=== PATIENT | male | born 1930 | race Caucasian/White ===

== ENCOUNTER → 2016-06-27 | Outpatient (CLI) | payer BC ==
[~2016-06-27] MED LIST: ALPR0.25 PO; AMBCR125 PO; ATEN-173 PO; CLOP1TAB15 PO; EZET10TA41 PO; FINA5TAB PO; IBUP-1050 PO; LEVO112T2 PO; LRT5 PO; MULT-506 PO; NXM/40 PO; SYN137 PO; XNX25 PO; ZNTT/150 PO; ZOLP12.5 PO
== END | disposition home or self-care (01) ==
LOC: C.LABBC 13:18
PROVIDERS: ATTEND Internal Medicine
DX: E03.9 Hypothyroidism, unspecified (principal)

== ENCOUNTER → 2016-08-10 | Outpatient (CLI) | payer BC | END | disposition home or self-care (01) | LOC: C.LABBC 12:51 | PROVIDERS: ATTEND Internal Medicine | DX: E03.9 Hypothyroidism, unspecified (principal) ==

== ENCOUNTER → 2016-11-27 | Outpatient (CLI) | payer BC ==
[~2016-11-27] MED LIST changes: +CHOL2000 PO; +GABA-112 PO; +IRON PO; +RXC5 PO; +SIMV40TA2 PO; +TRAM-10 PO
--- NOTE | 2016-11-27 08:56 | DIAGNOSTIC IMAGING REPORT ---
LUMBAR SPINE MRI HISTORY: Pain. Neuropathy. LOW BACK/LEFT LEG PAIN *PUSH FILMS TO [facility] FAX* TECHNIQUE: Multiplanar multisequence MRI of the lumbar spine was performed without the use of contrast. COMPARISON: None. FINDINGS: For the purpose of the report the L5-S1 disc space will be located on axial image 26 of 30. Considerable degenerative disc changes throughout. Reactive bone marrow edema of the L3-L4 associated vertebral endplates. Mild concave deformity of the superior and inferior endplates of L1 considered old and/or degenerative. L1-L2: Broad-based bulging disc with mild impact anterior thecal sac. Neuroforamina are considered patent bilaterally. L2-L3: Mild broad-based disc herniation. Moderate impact anterior thecal sac. Neuroforamina are patent bilaterally. L3-L4: Severe multifactorial spinal stenosis. Broad-based disc herniation. Hypertrophic change posterior elements and ligamentum flavum. Moderate to significant narrowing of the neuroforamina bilaterally. L4-L5: Moderate multifactorial narrowing of the spinal canal. Broad-based disc herniation. Posterior osteophyte formation. Hypertrophic change and ligamentum flavum. Mild narrowing of the neuroforamina bilaterally. L5-S1: Mild central disc herniation. Minimal, any impact the thecal sac. Neuroforamina are patent bilaterally. IMPRESSION: 1. Severe degenerative disc change of the entire lumbar region. 2. This is most prominent at L3-L4. 3. Severe multifactorial spinal stenosis L3-L4 with significant narrowing of the neuroforamina bilaterally. 4. Moderate multifactorial narrowing of the spinal canal at L4-L5. 5. Central bulging disc L5-S1 with a mild broad-based disc herniation L2-L3 Electronically signed by: Paolo Carter M.D. 11/27/2016 8:55 AM Dictated Date/Time: 11/27/2016 8:51 AM
== END | disposition home or self-care (01) ==
LOC: C.MRIBC 07:33
PROVIDERS: ATTEND Pain Medicine Interventional Pain Medicine
DX: M51.36 Other intervertebral disc degeneration, lumbar region (principal); M48.06 Spinal stenosis, lumbar region

== ENCOUNTER 2017-02-06 13:17 | Emergency (ER) | payer BC ==
[~2017-02-06] VITALS: Ht 179.1 cm; Wt 90.5 kg
[~2017-02-06 13:17] MED LIST changes: -ALPR0.25 PO; -CHOL2000 PO; -GABA-112 PO; -IBUP-1050 PO; -IRON PO; -LEVO112T2 PO; -RXC5 PO; -SIMV40TA2 PO; -TRAM-10 PO; -ZOLP12.5 PO
[2017-02-06 13:43] VITALS: O2SAT 94
[2017-02-06 13:47] VITALS: Ht 179.1 cm; Wt 90.5 kg
[2017-02-06] MEDS ORDERED: SODIUM CHLORIDE 0.9% 500ML 500 ML IV STA ×2 (14:28→15:30)
[2017-02-06 14:46] LABS: BASO % 0.5 %; BASO ABS # 0.04 K/uL (0-0.2); COMPLETE YES; EOS % 3.9 %; HEMATOCRIT 42.9 % (42-52); IG% 0.2 %; LYMPH % 23.9 %; LYMPH ABS # 2.05 K/uL (1.2-3.4); MEAN CELL VOLUME 91.7 fL (80-100); MEAN CORPUSCULAR HEMOGLOBIN 31.6 pg (25-34); MEAN CORPUSCULAR HGB CONC 34.5 g/dl (32-36); MEAN PLATELET VOLUME 10.3 fL (7.4-10.4); MONO % 7.2 %; NEUT % 64.3 %; PLATELET COUNT 192 K/uL (130-400); RED BLOOD COUNT 4.68 M/uL (4.7-6.1); WHITE BLOOD COUNT 8.57 K/uL (4.8-10.8)
--- NOTE | 2017-02-06 14:48 | DIAGNOSTIC IMAGING REPORT ---
CHEST ONE VIEW PORTABLE HISTORY: 86 years-old Male acute weakness COMPARISON: Portal chest radiograph 09/28/2014 TECHNIQUE: Portable upright AP view of the chest FINDINGS: Cardiac silhouette is within normal limits. There is atherosclerosis of the aorta. Prior median sternotomy. No pneumothorax or pleural effusion. Unchanged reticular nodular opacities of the lung bases are seen. No new focal consolidations identified. Bones are grossly intact. IMPRESSION: 1. No acute cardiopulmonary process. 2. Unchanged appearance of the nonspecific bibasilar reticular nodular opacities. The above report was generated using voice recognition software. It may contain grammatical, syntax or spelling errors. Electronically signed by: Jason Wyman M.D. 02/06/2017 2:46 PM Dictated Date/Time: 02/06/2017 2:45 PM
[2017-02-06] MEDS ORDERED: LEVO112T2 PO (14:54)
[2017-02-06] MEDS ORDERED: ZOLP12.5 PO (14:55)
[2017-02-06] MEDS ORDERED: ALPR0.25 PO (14:55)
[2017-02-06] MEDS ORDERED: IBUP-1050 PO (14:56)
[2017-02-06 14:57] LABS: URINE APPEARANCE CLEAR (CLEAR); URINE BILIRUBIN NEG (NEG); URINE COLOR YELLOW; URINE NITRITE NEG (NEG); URINE PH 5.5 (4.5-7.5); UROBILINOGEN NEG (NEG); ZZUR CULT IF INDIC CLEAN CATCH NO
--- NOTE | 2017-02-06 14:58 | EMERGENCY ROOM VISIT NOTE ---
History Report prepared by Esperanza: Marichuy Aragon Under the Supervision of: Dr. Gerard Briceno M.D. First contact with patient: 14:08 Chief Complaint: WEAKNESS Stated Complaint: WEAKNESS/DIZZY Nursing Triage Summary: Pt having sudden onset of generalized weakness that he said started at 1215 today. Pt denies any unilateral weakness. Pt denies pain/SOB at this time. History of Present Illness The patient is an 86 year old white male with a past medical history of spinal stenosis and triple bypass who presents to the ED with a cc of weakness beginning about 2 hours [employer]. Positive dizziness. Negative headache, fevers, chills, sore throat, congestion, cough, palpitations, tachycardia, shortness of breath, chest pain, urinary symptoms, incontinence, diarrhea. The patient states that he was sitting down and watching TV going about his normal daily routine. He tried to get up to go to the bathroom and make lunch. He realized that his legs were weak and he was unable to stand. He got dizzy and lightheaded at this time. The patient called an ambulance and was brought to the ED for further evaluation. He has been eating and drinking normally. He has been taking tramadol for his spinal stenosis but did not take any today. The patient takes Plavix. 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 Negative congestion, palpitations, tachycardia, and incontinence. Review of Systems See HPI for pertinent positives and negatives. A total of ten systems were reviewed and were otherwise negative. Past Medical & Surgical Medical Problems: (1) Esophageal Reflux (2) Gastroenteritis (3) Hypertension Nos (4) Migraine (5) Neuropathy (6) Spinal stenosis Surgical Problems: (1) History of appendectomy (2) S/P CABG x 3 Family History Cancer Social History Smoking Status: Former Smoker Marital Status: Housing Status: lives with significant other Occupation Status: retired Current/Historical Medications Scheduled Clopidogrel (Plavix), 75 MG PO QPM Ezetimibe/Simvastatin (Vytorin 10MG/40MG), 1 TAB PO QPM Finasteride (Proscar), 5 MG PO QPM Levothyroxine Sodium (Synthroid), 112 MCG PO QAM Multivitamin (Multivitamin), 1 TAB PO DAILY Ranitidine (Zantac), 150 MG PO QPM Scheduled PRN Alprazolam (Xanax), 0.25 MG PO HS PRN for Sleep Ibuprofen (Advil), 200-600 MG PO Q4H PRN for Pain Zolpidem Tartrate (Ambien Cr), 12.5 MG PO HS PRN for Sleep Allergies Coded Allergies: Atorvastatin (Unverified Adverse Reaction, Unknown, MYALGIA, 02/06/17) Physical Exam Vital Signs Date Time Temp Pulse Resp B/P (MAP) Pulse Ox O2 Delivery O2 Flow Rate FiO2 02/06/17 17:30 36.8 97 20 152/86 93 02/06/17 17:18 97 20 152/86 93 Room Air 02/06/17 15:27 97 17 99 Room Air 02/06/17 15:22 96 18 98 02/06/17 15:17 95 16 97 Room Air 02/06/17 15:00 169/82 02/06/17 14:47 90 20 93 02/06/17 14:17 105 27 93 02/06/17 13:53 91 02/06/17 13:47 36.8 92 18 173/101 94 Room Air 02/06/17 13:43 94 Room Air 02/06/17 13:41 173/101 Physical Exam GENERAL: Awake, alert, well-appearing, NAD HENT: Normocephalic, atraumatic. Arcus senilis noted. EYES: Normal conjunctiva. Sclera non-icteric. NECK: Supple. No nuchal rigidity. FROM. RESPIRATORY: CTAB, no rhonchi, wheezing, crackles CARDIAC: RRR, no MRG ABDOMEN: Soft, NTND, BS+ MSK: No chest wall TTP, no LE edema NEURO: GCS 15, CN 2-12 intact, moves all 4s on command. No saddle anesthesia, no sensory or motor deficit of bilateral lower extremities. SKIN: No rash or jaundice noted. Medical Decision & Procedures ER Provider Diagnostic Interpretation: Radiology results as stated below per my review and radiologist interpretation: CHEST ONE VIEW PORTABLE HISTORY: 86 years-old Male acute weakness COMPARISON: Portal chest radiograph 09/28/2014 TECHNIQUE: Portable upright AP view of the chest FINDINGS: Cardiac silhouette is within normal limits. There is atherosclerosis of the aorta. Prior median sternotomy. No pneumothorax or pleural effusion. Unchanged reticular nodular opacities of the lung bases are seen. No new focal consolidations identified. Bones are grossly intact. IMPRESSION: 1. No acute cardiopulmonary process. 2. Unchanged appearance of the nonspecific bibasilar reticular nodular opacities. The above report was generated using voice recognition software. It may contain grammatical, syntax or spelling errors. Electronically signed by: Jason Wyman M.D. 02/06/2017 2:46 PM Dictated Date/Time: 02/06/2017 2:45 PM Laboratory Results 02/06/17 14:09 Red Blood Count 4.68, Mean Corpuscular Volume 91.7, Mean Corpuscular Hemoglobin 31.6, Mean Corpuscular Hemoglobin Concent 34.5, Mean Platelet Volume 10.3, Neutrophils (%) (Auto) 64.3, Lymphocytes (%) (Auto) 23.9, Monocytes (%) (Auto) 7.2, Eosinophils (%) (Auto) 3.9, Basophils (%) (Auto) 0.5, Neutrophils # (Auto) 5.51, Lymphocytes # (Auto) 2.05, Monocytes # (Auto) 0.62, Eosinophils # (Auto) 0.33, Basophils # (Auto) 0.04 02/06/17 15:37 Test 02/06/17 14:09 02/06/17 15:08 02/06/17 15:37 White Blood Count 8.57 K/uL (4.8-10.8) Red Blood Count 4.68 M/uL (4.7-6.1) Hemoglobin 14.8 g/dL (14.0-18.0) Hematocrit 42.9 % (42-52) Mean Corpuscular Volume 91.7 fL (80-100) Mean Corpuscular Hemoglobin 31.6 pg (25-34) Mean Corpuscular Hemoglobin Concent 34.5 g/dl (32-36) Platelet Count 192 K/uL (130-400) Mean Platelet Volume 10.3 fL (7.4-10.4) Neutrophils (%) (Auto) 64.3 % Lymphocytes (%) (Auto) 23.9 % Monocytes (%) (Auto) 7.2 % Eosinophils (%) (Auto) 3.9 % Basophils (%) (Auto) 0.5 % Neutrophils # (Auto) 5.51 K/uL (1.4-6.5) Lymphocytes # (Auto) 2.05 K/uL (1.2-3.4) Monocytes # (Auto) 0.62 K/uL (0.11-0.59) Eosinophils # (Auto) 0.33 K/uL (0-0.5) Basophils # (Auto) 0.04 K/uL (0-0.2) RDW Standard Deviation 47.7 fL (36.4-46.3) RDW Coefficient of Variation 14.1 % (11.5-14.5) Immature Granulocyte % (Auto) 0.2 % Immature Granulocyte # (Auto) 0.02 K/uL (0.00-0.02) Urine Color YELLOW Urine Appearance CLEAR (CLEAR) Urine pH 5.5 (4.5-7.5) Urine Specific [place] 1.020 (1.000-1.030) Urine Protein NEG (NEG) Urine Glucose (UA) NEG (NEG) Urine Ketones NEG (NEG) Urine Occult Blood NEG (NEG) Urine Nitrite NEG (NEG) Urine Bilirubin NEG (NEG) Urine Urobilinogen NEG (NEG) Urine Leukocyte Esterase NEG (NEG) Urine WBC (Auto) 0 /hpf (0-5) Urine RBC (Auto) 0-4 /hpf (0-4) Urine Hyaline Casts (Auto) 1-5 /lpf (0-5) Urine Epithelial Cells (Auto) 5-10 /lpf (0-5) Urine Bacteria (Auto) NEG (NEG) Bedside Troponin I 0.030 ng/ml (0-0.045) Anion Gap 8.0 mmol/L (3-11) Est Creatinine Clear Calc Drug Dose 52.3 ml/min Estimated GFR () 64.0 Estimated GFR (Non- 55.2 BUN/Creatinine Ratio 17.9 (10-20) Calcium Level 8.7 mg/dl (8.5-10.1) Phosphorus Level 2.3 mg/dl (2.5-4.9) Magnesium Level 2.1 mg/dl (1.8-2.4) Thyroid Stimulating Hormone (TSH) 0.912 uIu/ml (0.300-4.500) Laboratory results reviewed by ok Medications Administered Medications (Trade) Dose Ordered Sig/Yuliana Route Start Time Stop Time Status Last Admin Dose Admin Sodium Chloride 500 ml @ 500 mls/hr Q1H STAT IV 02/06/17 14:28 02/06/17 15:27 DC 02/06/17 14:49 500 MLS/HR Sodium Chloride 500 ml @ 500 mls/hr Q1H STAT IV 02/06/17 15:30 02/06/17 16:29 DC 02/06/17 15:00 500 MLS/HR ECG Indication: weakness Rate (beats per minute): 92 Rhythm: normal sinus Findings: no ectopy, other (normal intervals; no T-wave inversions) ED Course 1408: The patient was evaluated in room C12A. A complete history and physical exam was performed. 1428: NSS 500 ml @ 500 mls/hr IV 1530: NSS 500 ml @ 500 mls/hr IV 1539: I went to update the patient, but he was in the bathroom. 1626: I reassessed the patient at this time. He is feeling better and resting comfortably. I discussed the results and treatment plan with the patient. I answered all pertaining questions that he had. He expressed understanding and verbalized agreement. The patient will be discharged home. Medical Decision Differential diagnosis: Etiologies such as metabolic, infection, hypo/hyperglycemia, electrolyte abnormalities, cardiac sources, intracerebral event, toxicologic, neurologic, as well as others were entertained. The patient is an 86 year old white male with a past medical history of spinal stenosis and triple bypass who presents to the ED with a cc of weakness beginning about 2 hours [employer]. Patient was evaluated with blood work EKG. Patient's EKG further unremarkable blood work also fairly unremarkable. Patient was given IV fluids. Patient describes dizziness as lightheadedness and not his vertiginous symptoms. Patient had no neurologic deficits. Patient denied any chest pain or shortness of breath. Patient had a negative troponin. Patient's chest x-ray was negative as well. Patient was concerned about a spinal stenosis however patient did not have any saddle anesthesia bowel or bladder incontinence or retention. Patient had no unexplained weight loss or IV drug abuse. Patient was feeling much improved and was able to ambulate and tolerate by mouth. Patient was given strict follow-up, discharge, return precautions. Patient replied care patient safely discharged home. Medication Reconcilliation Current Medication List: was personally reviewed by me Blood Pressure Screening Patient's blood pressure: Elevated blood pressure Blood pressure disposition: Referred to PCP Impression Primary Impression: Generalized weakness Additional Impression: Dehydration Scribe Attestation The scribe's documentation has been prepared under my direction and personally reviewed by me in its entirety. I confirm that the note above accurately reflects all work, treatment, procedures, and medical decision making performed by me. Departure Information Dispostion Home / Self-Care Referrals Ermias Nur M.D. (PCP) Patient Instructions ED Weakness DIPESH, Kiya [facility] Additional Instructions Please return to the emergency department if you have worsening or recurrent symptoms not amenable to at-home treatment. Please call for a follow-up appointment with her primary care physician. Please take your medications as prescribed. If you have other concerns and/or complaints please feel free to also call your primary care physician's office or return the ED for further evaluation, management, and treatment. For a new PCP call [phone]. You have been examined and treated today on an emergency basis only. This is not a substitute for, or an effort to provide, complete comprehensive medical care. It is impossible to recognize and treat all injuries or illnesses in a single emergency department visit. It is therefore important that you follow up closely with [facility], your PCP, and or your specialists. Call as soon as possible for an appointment. Thank you for your time and consideration. I look forward to speaking with you again soon. Please don't hesitate to call us if you have any questions. Problem Qualifiers
[2017-02-06 15:30] LABS: MANUAL MICROSCOPIC REQUIRED? NO; REVIEW REQ? NO
[2017-02-06 16:11] LABS: BUN/CREATININE RATIO 17.9 (10-20); CALCIUM 8.7 mg/dl (8.5-10.1); CREATININE 1.2 mg/dl (0.60-1.40); MAGNESIUM 2.1 mg/dl (1.8-2.4); POTASSIUM 3.8 mmol/L (3.5-5.1)
[2017-02-06 16:21] LABS: PHOSPHORUS 2.3 mg/dl (2.5-4.9); THYROID STIMULATING HORMONE 0.912 uIu/ml (0.300-4.500)
[2017-02-06 17:30] VITALS: BP 152/86; PULSE 97; TEMP 36.8; O2SAT 93
== END 2017-02-06 17:30 | disposition home or self-care (01) ==
LOC: C.EDC 13:17 → EDBD 13:17 → C.EDC 17:30
DX: R53.1 Weakness (principal); E86.0 Dehydration; R42 Dizziness and giddiness; K21.9 Gastro-esophageal reflux disease without esophagitis; I10 Essential (primary) hypertension; Z87.891 Personal history of nicotine dependence; Z90.89 Acquired absence of other organs; Z95.1 Presence of aortocoronary bypass graft; Z79.02 Long term (current) use of antithrombotics/antiplatelets; Z79.899 Other long term (current) drug therapy

== ENCOUNTER 2017-04-24 08:11 | Inpatient (IN) | payer BC, OTHER ==
[2017-03-27 10:47] VITALS: BMI 28.0
--- NOTE | 2017-03-27 11:16 | PAT Medication Instructions ---
Service Date Mar 27, 2017. Current Home Medication List Alprazolam (Xanax), 0.25 MG PO HS PRN for Sleep Cholecalciferol (Vitamin D3), 1 CAP PO QPM Clopidogrel (Plavix), 75 MG PO QPM Esomeprazole Magnesium (Nexium), 40 MG PO QAM Finasteride (Proscar), 5 MG PO QPM Gabapentin (Neurontin), 100 MG PO TID PRN for RN Ibuprofen (Advil), 400 MG PO BID Levothyroxine Sodium (Synthroid), 112 MCG PO QAM Ranitidine (Zantac), 300 MG PO QPM PRN for Heartburn Simvastatin (Zocor), 40 MG PO QPM Zolpidem Tartrate (Ambien Cr), 12.5 MG PO HS [Iron], 65 MG PO QPM Medication Instructions For Your Scheduled Surgery - Instructions to be given by Cardiology: Clopidogrel (Plavix), 75 MG PO QPM - Hold the following medications the morning of surgery: Ibuprofen (Advil), 400 MG PO BID (otherwise okay to continue per surgeon) - Take the following medications the morning of surgery with a sip of water OTHERWISE NOTHING TO EAT OR DRINK AFTER MIDNIGHT: Esomeprazole Magnesium (Nexium), 40 MG PO QAM Levothyroxine Sodium (Synthroid), 112 MCG PO QAM Gabapentin (Neurontin), 100 MG PO TID PRN - Take the following medications as scheduled the night before surgery: Ranitidine (Zantac), 300 MG PO QPM PRN for Heartburn Simvastatin (Zocor), 40 MG PO QPM Finasteride (Proscar), 5 MG PO QPM Alprazolam (Xanax), 0.25 MG PO HS PRN for Sleep Cholecalciferol (Vitamin D3), 1 CAP PO QPM Zolpidem Tartrate (Ambien Cr), 12.5 MG PO HS [Iron], 65 MG PO QPM Gabapentin (Neurontin), 100 MG PO TID PRN If you have any questions please call us at [phone] or [phone] or [phone]
[2017-03-27 11:42] LABS: BASO % 0.4 %; BASO ABS # 0.04 K/uL (0-0.2); COMPLETE YES; EOS % 5.1 %; HEMATOCRIT 39.6 % (42-52); IG% 0.2 %; LYMPH % 24.5 %; LYMPH ABS # 2.22 K/uL (1.2-3.4); MEAN CELL VOLUME 92.1 fL (80-100); MEAN CORPUSCULAR HEMOGLOBIN 30.7 pg (25-34); MEAN CORPUSCULAR HGB CONC 33.3 g/dl (32-36); MEAN PLATELET VOLUME 9.3 fL (7.4-10.4); MONO % 8.7 %; NEUT % 61.1 %; PLATELET COUNT 200 K/uL (130-400); WHITE BLOOD COUNT 9.05 K/uL (4.8-10.8)
[2017-03-27 11:45] LABS: URINE APPEARANCE CLEAR (CLEAR); URINE BILIRUBIN NEG (NEG); URINE COLOR YELLOW; URINE SPECIFIC GRAVITY 1.018 (1.000-1.030); ZZUR CULT IF INDIC CLEAN CATCH NO
[2017-03-27 11:46] LABS: URINE NITRITE NEG (NEG); UROBILINOGEN NEG (NEG)
[2017-03-27 12:06] LABS: MANUAL MICROSCOPIC REQUIRED? NO; REVIEW REQ? NO
[2017-03-27 12:10] LABS: BUN/CREATININE RATIO 13.1 (10-20); CALCIUM 8.6 mg/dl (8.5-10.1); CREATININE 1.27 mg/dl (0.60-1.40)
[2017-04-24] VITALS (10 sets, daily range): BP systolic 146–168; BP diastolic 68–98; PULSE 77–103; TEMP 36.2–36.7; O2SAT 91–99; Ht 177.8 cm; Wt 89.4 kg
[~2017-04-24] VITALS: Ht 177.8 cm; Wt 89.4 kg
[~2017-04-24 08:11] MED LIST changes: +ALPR0.25 PO; -AMBCR125 PO; -ATEN-173 PO; +CEFAZOLIN 2000MG IV PUSH 10 ML IV SCH; +CHOL2000 PO; -EZET10TA41 PO; +GABA-112 PO; +IBUP-1050 PO; +IRON PO; +LEVO112T2 PO; -LRT5 PO; -MULT-506 PO; +SIMV40TA2 PO; -SYN137 PO; -XNX25 PO; +ZOLP12.5 PO
[2017-04-24] MEDS ORDERED: TRAM-10 PO (08:43)
[2017-04-24] MEDS: LACTATED RINGER'S 1000ML 1,000 ML IV SCH ×2 (08:58→10:06)
--- NOTE | 2017-04-24 09:38 | History & Physical Bridge Note ---
H&P Re-Evaluation Bridge Note: I have examined the patient, reviewed the History & Physical and in the interval since the performance of the History & Physical I have noted the following changes of clinical significance: No changes noted
--- NOTE | 2017-04-24 09:42 | History and Physical ---
History & Physical Date Apr 24, 2017. Chief Complaint Back and leg pain History of Present Illness The patient is a 86 year old male with complaints of back and leg pain Past Medical/Surgical History Medical Problems: (1) Esophageal Reflux (2) Gastroenteritis (3) Hypertension Nos (4) Migraine (5) Neuropathy (6) Spinal stenosis Surgical Problems: (1) History of appendectomy (2) S/P CABG x 3 Additional History Hepatic Disease: No Endocrine Disorder: No Kidney Disease: No Hypertension: No Heart Disease: No Bleeding Tendencies: No Infectious Diseases: No Allergies Coded Allergies: Atorvastatin (Unverified Adverse Reaction, Unknown, MYALGIA, 04/24/17) Home Medications Scheduled Cholecalciferol (Vitamin D3), 1 CAP PO QPM Clopidogrel (Plavix), 75 MG PO QPM Esomeprazole Magnesium (Nexium), 40 MG PO QAM Finasteride (Proscar), 5 MG PO QPM Ibuprofen (Advil), 400 MG PO BID Levothyroxine Sodium (Synthroid), 112 MCG PO QAM Simvastatin (Zocor), 40 MG PO QPM Zolpidem Tartrate (Ambien Cr), 12.5 MG PO HS [Iron], 65 MG PO QPM Scheduled PRN Alprazolam (Xanax), 0.25 MG PO HS PRN for Sleep Gabapentin (Neurontin), 100 MG PO TID PRN for RN Ranitidine (Zantac), 300 MG PO QPM PRN for Heartburn Tramadol (Ultram), 1 TAB PO DAILY PRN for Pain or Fever Physical Examination Skin: warm/dry, no rash Eyes: normal inspection, EOMI, sclerae normal ENT: normal ENT inspection, pharynx normal Head: normocephalic, atraumatic Neck: supple, no adenopathy, trachea midline Respiratory/Chest: lungs clear, normal breath sounds, no respiratory distress Cardiovascular: regular rate, rhythm, no edema, no murmur Abdomen / GI: normal bowel sounds, non tender Back: normal inspection Extremities: normal inspection, normal range of motion Neurologic/Psych: no motor/sensory deficits, alert, normal reflexes, oriented x 3 Diagnosis Lumbar spinal stenosis Plan of Treatment L3 to L4 decompression in situ versus instrumented fusion
[2017-04-24] MEDS ORDERED: ONDANSETRON INJ 2 MG/ML 2 ML VIAL IV PRN (10:00)
[2017-04-24] MEDS ORDERED: MEPERIDINE HCL 25 MG/ML CARP IV PRN (10:00)
[2017-04-24] MEDS ORDERED: ATROPINE SULFATE 0.1 MG/ML 5ML SYR IV PRN (10:00)
[2017-04-24] MEDS ORDERED: HYDROmorphone INJ 1 MG/ML SYR IV PRN (10:00)
[2017-04-24] MEDS ORDERED: LABETALOL HCL IV 5 MG/ML 20ML IV PRN (10:00)
[2017-04-24] MEDS ORDERED: FENTANYL CITRATE INJ 50 MCG/1 ML 2 ML VIAL IV PRN (10:00)
[2017-04-24] MEDS ORDERED: EpHEDrine SULFATE INJ 50 MG/ML AMP IV PRN (10:00)
[2017-04-24] MEDS ORDERED: SODIUM CHLORIDE 0.9% PF 50 ML VIAL ONE (10:07)
[2017-04-24] MEDS ORDERED: BACITRACIN 50000 UNIT VIAL ONE (10:07)
[2017-04-24] MEDS ORDERED: FENTANYL CITRATE INJ 50 MCG/1 ML 2 ML VIAL ONE ×2 (10:09→10:34)
[2017-04-24] MEDS ORDERED: MIDAZOLAM HCL 1 MG/ML 2ML VIAL ONE (10:09)
[2017-04-24] MEDS ORDERED: BUPIVACAINE/EPINEPHRINE 0.5% MPF 1:200,000 30 ML VIAL ONE (10:25)
[2017-04-24] MEDS ORDERED: HYDROmorphone INJ 2 MG/ML SYR/VIAL ONE (10:35)
[2017-04-24] MEDS ORDERED: EpHEDrine SULFATE 50MG/5ML SYR ONE (10:47)
[2017-04-24] MEDS ORDERED: PHENYLEPHRINE 100MCG/ML 5ML SYR ONE (10:47)
[2017-04-24] MEDS ORDERED: FLOSEAL HEMOSTATIC MATRIX 5ML TOP ONE (10:54)
[2017-04-24] MEDS ORDERED: FLOSEAL HEMOSTATIC MATRIX 10ML TOP ONE (10:57)
[2017-04-24] MEDS ORDERED: ONDANSETRON INJ 2 MG/ML 2 ML VIAL ONE (11:19)
[2017-04-24] MEDS ORDERED: DEXAMETHASONE SOD INJ 4 MG/ML VIAL ONE (11:19)
[2017-04-24] MEDS ORDERED: NEOSTIGMINE METHYLSULFATE 1 MG/ML 10ML VIAL ONE (11:19)
[2017-04-24] MEDS ORDERED: PROPOFOL IV EMULSION 10 MG/ML 20 ML VIAL IV ONE (11:19)
[2017-04-24] MEDS ORDERED: LIDOCAINE HCL 2% 2 ML VIAL (20MG/ML) ONE (11:19)
[2017-04-24] MEDS ORDERED: GLYCOPYRROLATE INJ 0.2 MG/ML VIAL ONE (11:19)
[2017-04-24] MEDS ORDERED: SODIUM CHLORIDE 0.9% 1000ML 1,000 ML IV SCH (11:58)
[2017-04-24] MEDS ORDERED: NALOXONE HCL 0.4 MG/1 ML VIAL/CARP IV PRN ×2 (12:00)
[2017-04-24] MEDS ORDERED: ALUMINUM/MAGNESIUM SUSP 30 ML UDC PO PRN (12:00)
[2017-04-24] MEDS ORDERED: hydrOXYzine HCL 25 MG TAB PO PRN (12:00)
[2017-04-24] MEDS ORDERED: BISACODYL 10 MG SUPP PR PRN (12:00)
[2017-04-24] MEDS ORDERED: ACETAMINOPHEN IV 100 ML IV PRN (12:00)
[2017-04-24] MEDS ORDERED: RANITIDINE HCL 150 MG TAB PO PRN (12:00)
[2017-04-24] MEDS ORDERED: ALPRAZOLAM 0.25 MG TAB PO PRN (12:00)
[2017-04-24] MEDS ORDERED: TRAMADOL HCL 50 MG TAB PO PRN (12:00)
[2017-04-24] MEDS ORDERED: MAGNESIUM HYDROXIDE SUSP 30 ML UDC PO PRN (12:00)
[2017-04-24] MEDS ORDERED: DO NOT ADMINISTER PNEUMOCOCCAL VACCINE PRN ×2 (12:00)
[2017-04-24] MEDS ORDERED: ACETAMINOPHEN 500 MG TAB PO PRN (12:00)
[2017-04-24] MEDS ORDERED: DO NOT ADMINISTER FLU VACCINE PRN ×3 (12:00)
[2017-04-24] MEDS ORDERED: SOD PHOSPHATE/SOD BIPHOSPHATE ENEMA 132 ML BTL PR PRN (12:00)
[2017-04-24] MEDS ORDERED: GABAPENTIN 100 MG CAP PO PRN (12:00)
[2017-04-24] MEDS ORDERED: FAMOTIDINE 20 MG TAB PO PRN (12:00)
--- NOTE | 2017-04-24 12:09 | [facility] Operative Report ---
Operative Report Operative Date Apr 24, 2017. Pre-Operative Diagnosis Lumbar Spinal Stenosis Post-Operative Diagnosis Lumbar Spinal Stenosis Procedure(s) Performed #1 lumbar decompression medial facetectomies foraminotomies L2 3 L3 4. #2 posterior spinal fusion L3 4. #3 placement of posterior instrumentation L3 4. #4 placement of locally harvested morcellized autograft posterior gutters. #5 placement infuse collagen sponge combined Master graft and posterior gutters. Surgeon Amparo Core Checker Surgeon(s) Lashon Dominguez PA-C Estimated Blood Loss 275ML Findings Severe spinal stenosis with herniated nucleus pulposus and bilateral foraminal stenosis Specimens None per surgeon Description of Procedure Patient was met with preoperatively case discussed all questions addressed. After informed consent was obtained patient was taken to the operative suite placed in the prone position the [place] table top Roni frame. All bony prominences were well-padded eyes inspected to ensure there is no external pressure placed upon them. This point lumbar spines prepped draped nostril fashion. Sharp dissection with the assistance of Bovie cautery was performed onto an exposing the lamina and transverse processes of L3 4. From a caudal cephalad fashion complete laminectomy of L3 and partial laminectomy of L2 was performed including the facet was foraminotomies addressing severe lateral recess and foraminal stenosis. After this complete pedicle screws were placed in L2 3 and L4 bilaterally with assistance of fluoroscopy the purposes suzanne locked in position. The transverse processes of L3 and L4 were then burred to subcortical bleeding bone. Infuse collagen sponge mask graft and locally harvested morcellized autograft was placed in the posterior lateral gutters. A 15 round LICO drain was inserted. Incision was then closed with 1 Vicryl in the fascia 2-0 Vicryl subcutaneous cutaneously 4 Monocryl for skin closure Steri- Strips sterile dressings placed patient we can take PACU stable condition. Please note Lasohn Carpenter was present at the entire procedure involved in patient positioning complex portions of the surgery and final skin closure. I attest to the content of the Intraoperative Record and any orders documented therein. Any exceptions are noted below.
[2017-04-24] MEDS ORDERED: HYDROmorphone HCL 0.5MG/ML 50 ML CASSETTE ONE (12:12)
[2017-04-24] MEDS ORDERED: ESMOLOL HCL 10 MG/ML 10 ML VIAL ONE (12:16)
--- NOTE | 2017-04-24 12:18 | DIAGNOSTIC IMAGING REPORT ---
LUMBAR SPINE 2 OR 3 VIEW HISTORY: 86 years-old Male L3-L4 DECOMPRESSION/FUSION status post decompression at L3-L4 COMPARISON: Lumbar spine radiograph 03/12/2017 TECHNIQUE: 2 spot fluoroscopic images of the lumbar spine were obtained utilizing 10.7 seconds fluoroscopy time FINDINGS: Postoperative changes compatible with posterior decompression with posterior interbody suzanne and screw fusion at the L3-L4 level. Alignment appears satisfactory. Multilevel intervertebral disc space narrowing and endplate spurring is noted. IMPRESSION: Fluoroscopic assistance as above. Please see operative report for further details. The above report was generated using voice recognition software. It may contain grammatical, syntax or spelling errors. Electronically signed by: Jason Wyman M.D. 04/24/2017 12:17 PM Dictated Date/Time: 04/24/2017 12:16 PM
[2017-04-24] MEDS: SODIUM CHLORIDE 0.9% 1000ML 1,000 ML IV SCH ×2 (14:07→20:33)
--- NOTE | 2017-04-24 14:16 | Anesthesiology Progress Note ---
Anesthesia Post Op Note Date & Time Apr 24, 2017 at 14:15 Vital Signs Pain Intensity: 5.0 Vital Signs Past 12 Hours Date Time Temp Pulse Resp B/P (MAP) Pulse Ox O2 Delivery O2 Flow Rate FiO2 04/24/17 14:05 36.4 79 16 153/68 (96) 99 Nasal Cannula 4.0 04/24/17 13:00 91 Nasal Cannula 4.0 04/24/17 13:00 36.4 77 16 147/75 (99) 91 Nasal Cannula 4.0 04/24/17 13:00 91 Nasal Cannula 4.0 04/24/17 12:55 80 12 151/71 98 Nasal Cannula 4 04/24/17 12:45 36.4 81 16 157/79 95 Nasal Cannula 4 04/24/17 12:35 77 16 143/74 98 Nasal Cannula 4 04/24/17 12:25 80 16 147/73 100 Oxymask 10 04/24/17 12:15 79 16 152/78 100 Oxymask 10 04/24/17 12:09 36.8 81 16 127/65 100 Oxymask 10 04/24/17 08:44 36.4 92 20 161/89 (113) 93 Room Air Notes Mental Status: alert / awake / arousable, participated in evaluation Pt Amnestic to Procedure: Yes Nausea / Vomiting: adequately controlled Pain: adequately controlled Airway Patency, RR, SpO2: stable & adequate BP & HR: stable & adequate Hydration State: stable & adequate Anesthetic Complications: no major complications apparent
[2017-04-24] MEDS: HYDROmorphone HCL 0.5MG/ML 50 ML CASSETTE IV PRN ×2 (14:58→23:10)
[2017-04-24] MEDS: CEFAZOLIN IV 2,000 MG in SYRINGE 0 ML IV SCH (17:29)
[2017-04-24] MEDS: DEXAMETHASONE INJ 6 MG in SYRINGE 0 ML IV SCH (20:34)
[2017-04-24] MEDS: FINASTERIDE 5 MG TAB PO SCH (20:35)
[2017-04-24] MEDS: SIMVASTATIN 40 MG TAB PO SCH (20:35)
[2017-04-24] MEDS: DOCUSATE SODIUM/SENNA 50/8.6MG TAB PO SCH (20:35)
[2017-04-24] MEDS ORDERED: COUGH DROP (SUGAR FREE) LOZ 24 LOZ/1 BOX PO PRN (20:45)
[2017-04-24] MEDS ORDERED: NURSING DECISION MEDICATION ORDER SCH (20:45)
--- NOTE | 2017-04-24 21:05 | Medical Consult ---
Consultation Date of Consultation: Apr 24, 2017. Attending Physician: Donnell Christensen D.O. Reason for Consultation: post-operative medical management History of Present Illness 86yo male with history of CAD s/p CABG, HTN, hyperlipidemia, BPH, and hypothyroidism who presented today for elective lumbar back surgery by Dr. Moisés Christensen. I saw the patient post-op on the orthopedic floor and he denied any chest pain, dyspnea, nausea, emesis, or abdominal pain. His main complaint was that of back pain. The operative record indicates that the patient had: #1 lumbar decompression medial facetectomies foraminotomies L2-3 and L3-4. #2 posterior spinal fusion L3-4. #3 placement of posterior instrumentation L3-4. Past Medical/Surgical History PMH: 1. CAD 2. GERD 3. HTN 4. h/o migraine 5. h/o neuropathy 6. spinal stenosis of the lumbar spine 7. hyperlipidemia 8. hypothyroidism 9. BPH PSH: 1. appendectomy 2. 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[employer]) Allergies Coded Allergies: Atorvastatin (Unverified Adverse Reaction, Unknown, MYALGIA, 04/24/17) Home Medications Ultram (Tramadol HCl) 50 Mg Tab 1 Tab PO DAILY PRN 30 Days Nexium (Esomeprazole Magnesium) 40 Mg Capcr 40 Mg PO QAM Zocor (Simvastatin) 40 Mg Tab 40 Mg PO QPM Vitamin D3 (Cholecalciferol) 2,000 Unit Cap 1 Cap PO QPM 90 Days [Iron] 65 Mg PO QPM Neurontin (Gabapentin) 100 Mg Cap 100 Mg PO TID PRN Advil (Ibuprofen) 200 Mg Tab 400 Mg PO BID Ambien Cr (Zolpidem Tartrate) 12.5 Mg Tabcr 12.5 Mg PO HS Xanax (Alprazolam) 0.25 Mg Tab 0.25 Mg PO HS PRN Synthroid (Levothyroxine Sodium) 112 Mcg Tab 112 Mcg PO QAM Zantac (Ranitidine HCl) 150 Mg Tab 300 Mg PO QPM PRN Proscar (Finasteride) 5 Mg Tab 5 Mg PO QPM Plavix (Clopidogrel Bisulfate) 75 Mg Tab 75 Mg PO QPM Current Inpatient Medications Current Inpatient Medications Medications (Trade) Dose Ordered Sig/Yuliana Route Start Time Stop Time Status Last Admin Dose Admin Cefazolin Sodium 10 ml @ 2.5 mls/min PREOP IV 04/24/17 06:00 04/24/17 18:00 04/24/17 10:18 2.5 MLS/MIN Dexamethasone Sodium Phosphate 6 mg/Syringe 1.5 ml @ 1 mls/min Q8H IV 04/24/17 20:00 04/25/17 12:02 Pneumococcal Polysaccharide Vaccine 1 ea PRN PRN N/A 04/24/17 12:00 05/24/17 11:59 Influenza Virus Vacc Triv Types A&B 1 ea PRN PRN N/A 04/24/17 12:00 05/24/17 11:59 Polyethylene (Miralax Powder Packet) 17 gm Q6 PO 04/26/17 06:00 05/26/17 05:59 Bisacodyl (Dulcolax Supp) 10 mg DAILY PRN OR 04/24/17 12:00 05/24/17 11:59 Magnesium Hydroxide (Milk Of Magnesia Susp) 30 ml DAILY PRN PO 04/24/17 12:00 05/24/17 11:59 Hydromorphone HCl (Dilaudid Inj) 0.5 mg Q3H PRN IV 04/25/17 06:00 05/09/17 05:59 Oxycodone HCl (Roxicodone Immediate Rel Tab) 5-10mg prn moderate to sev... Q4H PRN PO 04/25/17 06:00 05/09/17 05:59 Cefazolin Sodium 2000 mg/Syringe 10 ml @ 2.5 mls/min Q8H IV 04/24/17 18:00 04/25/17 02:03 04/24/17 17:29 2.5 MLS/MIN Sodium Chloride 1,000 ml @ 150 mls/hr Q6H40M IV 04/24/17 14:00 05/24/17 13:59 04/24/17 14:07 150 MLS/HR Acetaminophen (Tylenol Tab) 1,000 mg Q8H PRN PO 04/24/17 12:00 05/24/17 11:59 Acetaminophen 100 ml @ 400 mls/hr Q8H PRN IV 04/24/17 12:00 05/24/17 11:59 Naloxone HCl (Narcan Inj) 0.1 mg Q5M PRN IV 04/24/17 12:00 05/24/17 11:59 Senna/Docusate Sodium (Senokot S Tab) 2 tab HS PO 04/24/17 21:00 05/24/17 20:59 Sodium Biphosphate/ Sodium Phosphate (Fleet Enema) 132 ml ONE PRN OR 04/24/17 12:00 05/24/17 11:59 Hydroxyzine HCl (Vistaril Tab) 25 mg Q8H PRN PO 04/24/17 12:00 05/24/17 11:59 Al Hydroxide/Mg Hydroxide (Maalox Susp) 30 ml Q6H PRN PO 04/24/17 12:00 05/24/17 11:59 Famotidine (Pepcid Tab) 20 mg Q12 PRN PO 04/24/17 12:00 05/24/17 11:59 Diphenhydramine HCl (Benadryl Cap) 25 mg Q6H PRN PO 04/24/17 12:00 05/24/17 11:59 Miscellaneous Information (Discontinue LIGHT TECHNICIAN) 1 ea TODAY@0600 N/A 04/25/17 06:00 04/25/17 06:01 Naloxone HCl (Narcan Inj) 0.1 mg Q5M PRN IV 04/24/17 12:00 04/25/17 06:00 Hydromorphone HCl (Dilaudid School Age Lead Teacher) 25 mg PRN PRN IV 04/24/17 12:00 04/25/17 06:00 04/24/17 14:58 25 MG Sodium Chloride 1,000 ml @ 15 mls/hr Q24H IV 04/24/17 11:58 04/25/17 06:00 Alprazolam (Xanax Tab) 0.25 mg HS PRN PO 04/24/17 12:00 05/24/17 11:59 Finasteride (Proscar Tab) 5 mg QPM PO 04/24/17 21:00 05/24/17 20:59 Gabapentin (Neurontin Cap) 100 mg TID PRN PO 04/24/17 12:00 05/24/17 11:59 Levothyroxine Sodium (Synthroid Tab) 112 mcg DAILYBB PO 04/25/17 06:00 05/25/17 05:59 Ranitidine HCl (zANTac TAB) 300 mg QPM PRN PO 04/24/17 12:00 05/24/17 11:59 Simvastatin (Zocor Tab) 40 mg QPM PO 04/24/17 21:00 05/24/17 20:59 Tramadol HCl (Ultram Tab) 50 mg DAILY PRN PO 04/24/17 12:00 05/24/17 11:59 Pantoprazole Sodium (Protonix Tab) 40 mg QAM PO 04/25/17 09:00 05/25/17 08:59 Miscellaneous Information (Order Awaiting Action) 1 ea QS N/A 04/24/17 16:00 05/24/17 15:59 Hydromorphone HCl (Dilaudid Inj) 1 mg Q3H PRN IV 04/25/17 06:00 05/09/17 05:59 Review of Systems Constitutional: No fever, No chills, No weight loss, No fatigue Eyes: No worsening of vision ENT: No hearing loss, No nasal symptoms, No sore throat, No trouble swallowing Respiratory: No cough, No dyspnea on exertion, No dyspnea at rest Cardiovascular: No chest pain, No orthopnea, No PND, No edema Abdomen: No pain, No nausea, No vomiting, No diarrhea, No GI bleeding Musculoskeletal: No joint pain Genitourinary - Male: No dysuria Neurologic: + numbness/tingling (legs, prior to his operation), No memory loss Psychiatric: No depression symptoms Endocrine: No fatigue Hematologic / Lymphatic: No abnormal bleeding/bruising Integumentary: No rash Physical Exam Date Time Temp Pulse Resp B/P (MAP) Pulse Ox O2 Delivery O2 Flow Rate FiO2 04/24/17 16:03 36.2 85 16 159/78 (105) 95 Nasal Cannula 3.0 04/24/17 14:53 36.3 81 16 147/83 (104) 96 Nasal Cannula 4.0 04/24/17 14:27 36.3 77 19 153/73 (99) 96 Nasal Cannula 4.0 04/24/17 14:05 36.4 79 16 153/68 (96) 99 Nasal Cannula 4.0 04/24/17 13:00 91 Nasal Cannula 4.0 04/24/17 13:00 36.4 77 16 147/75 (99) 91 Nasal Cannula 4.0 04/24/17 13:00 91 Nasal Cannula 4.0 04/24/17 12:55 80 12 151/71 98 Nasal Cannula 4 04/24/17 12:45 36.4 81 16 157/79 95 Nasal Cannula 4 04/24/17 12:35 77 16 143/74 98 Nasal Cannula 4 04/24/17 12:25 80 16 147/73 100 Oxymask 10 04/24/17 12:15 79 16 152/78 100 Oxymask 10 04/24/17 12:09 36.8 81 16 127/65 100 Oxymask 10 04/24/17 08:44 36.4 92 20 161/89 (113) 93 Room Air General Appearance: no apparent distress Head: normocephalic, atraumatic Eyes: PERRL ENT: pharynx normal Neck: supple, no adenopathy, thyroid normal, no JVD Respiratory/Chest: no respiratory distress, no accessory muscle use, + rales ( bases ) Cardiovascular: no gallop, no murmur, normal peripheral pulses, + tachycardia Abdomen/GI: normal bowel sounds, soft, no organomegaly, + distended (bladder - with tenderness) Back: + pertinent finding (large dressing in place on back) Extremities/Musculoskelatal: no pedal edema Neurologic/Psych: no motor/sensory deficits, alert, oriented x 3 Skin: no rash Assessment & Plan 86yo male with history of CAD s/p CABG 1979, BPH, HTN, hyperlipidemia, and hypothyroidism who underwent lumbar back surgery today for severe spinal stenosis. 1. s/p lumbar decompression/fusion - DVT proph, pain management, dispo per primary orthopedic team. 2. tachycardia - would obtain EKG to ensure no ischemic changes or dysrhythmia although his rhythm sounded regular on exam. Tachycardia could be due to acute blood loss anemia, pain, etc. Follow carefully. 3. hypothyroidism - continue synthroid; TSH was compensated in January 2017. 4. BPH - the patient has not voided since his surgery. His bladder feels distended. Low threshold for I/O cath. If symptoms persist he could need arreaga. 5. HTN - continue outpatient meds. 6. CAD - no ischemic symptoms at this time. Resume plavix when OK with primary orthopedic team. Cont statin. 7. GERD - continue H2 evens. 8. neuropathy - gabapentin. 9. FEN - patient currently getting 150cc/hr of basal fluids + his LIGHT TECHNICIAN (another 15cc/hr). Would lower basal rate to 100cc/hr to avoid fluid overload. Thank you for this consult. Will continue to follow with you. Additional Copies To Ermias Nur M.D.; Hever Jackman,P.A.
[2017-04-25] MEDS: CEFAZOLIN IV 2,000 MG in SYRINGE 0 ML IV SCH (02:04)
[2017-04-25 03:00] VITALS: BP 158/77; PULSE 100; TEMP 36.6; O2SAT 92
[2017-04-25] MEDS: SODIUM CHLORIDE 0.9% 1000ML 1,000 ML IV SCH (03:09)
[2017-04-25] MEDS: DEXAMETHASONE INJ 6 MG in SYRINGE 0 ML IV SCH ×2 (03:49→12:53)
[2017-04-25] MEDS: LEVOTHYROXINE 112 MCG TAB PO SCH (05:18)
[2017-04-25] MEDS ORDERED: HYDROmorphone INJ 1 MG/ML SYR IV PRN (06:00)
[2017-04-25] MEDS ORDERED: NURSING VERBAL MED ORDER ONE (06:00)
[2017-04-25] MEDS ORDERED: HYDROmorphone INJ 0.5 MG/0.5 ML SYR IV PRN (06:00)
[2017-04-25] MEDS ORDERED: DC PCA SCH (06:00)
[2017-04-25] MEDS ORDERED: OXYCODONE HCL IR 5 MG TAB (IMMEDIATE RELEASE) PO PRN (06:00)
[2017-04-25 06:22] LABS: BASO % 0.1 %; BASO ABS # 0.01 K/uL (0-0.2); COMPLETE YES; HEMATOCRIT 37.2 % (42-52); IG% 0.4 %; LYMPH % 4.6 %; LYMPH ABS # 0.77 K/uL (1.2-3.4); MEAN CELL VOLUME 91.2 fL (80-100); MEAN CORPUSCULAR HEMOGLOBIN 30.9 pg (25-34); MEAN CORPUSCULAR HGB CONC 33.9 g/dl (32-36); MEAN PLATELET VOLUME 9.4 fL (7.4-10.4); MONO % 6.8 %; NEUT % 88.1 %; PLATELET COUNT 162 K/uL (130-400); RED BLOOD COUNT 4.08 M/uL (4.7-6.1)
[2017-04-25 06:51] LABS: CALCIUM 8.5 mg/dl (8.5-10.1); CREATININE 1.16 mg/dl (0.60-1.40); POTASSIUM 4.7 mmol/L (3.5-5.1)
[2017-04-25 07:33] VITALS: BP 144/70; PULSE 93; TEMP 36.5; O2SAT 91
[2017-04-25] MEDS: PANTOprazole SOD 40 MG TAB PO SCH (09:28)
--- NOTE | 2017-04-25 10:35 | Hospitalist Progress Note ---
Hospitalist Progress Note Date of Service Apr 25, 2017. (Cayla Alejo ., PA-C) Subjective Pt evaluation today including: conversation w/ patient, physical exam, chart review, lab review, review of inpatient medication list Pain: Back pain controlled PO Intake: Tolerating PO diet Voiding: no voiding problems Patient reports feeling well. He reports some back pain while walking but states that it is well controlled. He is eating and urinating without difficulty. He denies passing flatus but states that he is belching often. He denies any bowel movements yet postop. He complains of numbness/tingling in his lower extremities which is chronic and actually improved postop. The patient denies fevers, chills, sweats, chest pain, palpitations, claudication, cough, wheezing, shortness of breath, nausea, vomiting, abdominal pain, dysuria , hematuria, urinary retention, paralysis, weakness. Additional Comments: See HPI for pertinent positives and negatives. All other systems reviewed and negative. (Cayla Alejo ., PA-C) Objective Vital Signs Date Time Temp Pulse Resp B/P (MAP) Pulse Ox O2 Delivery O2 Flow Rate FiO2 04/25/17 08:00 Room Air 04/25/17 07:33 36.5 93 17 144/70 (94) 91 Room Air 04/25/17 03:00 36.6 100 18 158/77 (104) 92 Nasal Cannula 2.0 04/24/17 23:30 Room Air 04/24/17 23:30 94 04/24/17 23:00 36.6 100 18 146/82 (103) 92 Room Air 04/24/17 21:56 102 04/24/17 19:39 36.7 103 17 168/98 (121) 94 Room Air 04/24/17 16:03 36.2 85 16 159/78 (105) 95 Nasal Cannula 3.0 04/24/17 15:45 Nasal Cannula 2.0 04/24/17 14:53 36.3 81 16 147/83 (104) 96 Nasal Cannula 4.0 04/24/17 14:27 36.3 77 19 153/73 (99) 96 Nasal Cannula 4.0 04/24/17 14:05 36.4 79 16 153/68 (96) 99 Nasal Cannula 4.0 04/24/17 13:00 91 Nasal Cannula 4.0 04/24/17 13:00 36.4 77 16 147/75 (99) 91 Nasal Cannula 4.0 04/24/17 13:00 91 Nasal Cannula 4.0 04/24/17 12:55 80 12 151/71 98 Nasal Cannula 4 04/24/17 12:45 36.4 81 16 157/79 95 Nasal Cannula 4 04/24/17 12:35 77 16 143/74 98 Nasal Cannula 4 04/24/17 12:25 80 16 147/73 100 Oxymask 10 04/24/17 12:15 79 16 152/78 100 Oxymask 10 04/24/17 12:09 36.8 81 16 127/65 100 Oxymask 10 (Cayla Alejo, PA-C) Physical Exam Notes: General appearance: Well-developed, well-nourished, no apparent distress Head: Normocephalic, atraumatic Eyes: Normal inspection, PERRL, EOMI ENT: Normal ENT inspection, hearing grossly normal, pharynx normal Neck: Supple, no JVD, trachea midline Respiratory/Chest: Lungs clear to auscultation, normal breath sounds, no respiratory distress Cardiovascular: Regular rate & rhythm, no gallop, no murmur Abdomen/GI: Normal bowel sounds, non-tender, soft Extremities/Musculoskeletal: Normal inspection, no calf tenderness, no pedal edema Neurological/Psych: Alert, normal mood/affect, oriented x 3 Skin: Normal color, warm/dry, no rash (Cayla Alejo ., PA-C) Laboratory Results Last 24 Hours Test 04/25/17 06:06 White Blood Count 16.60 K/uL Red Blood Count 4.08 M/uL Hemoglobin 12.6 g/dL Hematocrit 37.2 % Mean Corpuscular Volume 91.2 fL Mean Corpuscular Hemoglobin 30.9 pg Mean Corpuscular Hemoglobin Concent 33.9 g/dl Platelet Count 162 K/uL Mean Platelet Volume 9.4 fL Neutrophils (%) (Auto) 88.1 % Lymphocytes (%) (Auto) 4.6 % Monocytes (%) (Auto) 6.8 % Eosinophils (%) (Auto) 0.0 % Basophils (%) (Auto) 0.1 % Neutrophils # (Auto) 14.63 K/uL Lymphocytes # (Auto) 0.77 K/uL Monocytes # (Auto) 1.13 K/uL Eosinophils # (Auto) 0.00 K/uL Basophils # (Auto) 0.01 K/uL RDW Standard Deviation 43.8 fL RDW Coefficient of Variation 13.2 % Immature Granulocyte % (Auto) 0.4 % Immature Granulocyte # (Auto) 0.06 K/uL Sodium Level 139 mmol/L Potassium Level 4.7 mmol/L Chloride Level 105 mmol/L Carbon Dioxide Level 26 mmol/L Anion Gap 8.0 mmol/L Blood Urea Nitrogen 19 mg/dl Creatinine 1.16 mg/dl Est Creatinine Clear Calc Drug Dose 53.3 ml/min Estimated GFR () 66.7 Estimated GFR (Non- 57.5 BUN/Creatinine Ratio 16.0 Random Glucose 144 mg/dl Calcium Level 8.5 mg/dl (Cayla Alejo .FRANKOC) Assessment and Plan 86 y/o male with a history of CAD s/p CABG, HTN, HLD, neuropathy, hypothyroidism , BPH and GERD who presents s/p lumbar decompression and fusion on 04/[address] Christensen for medical management. S/p lumbar decompression and fusion--POD #1 -Pain management, DVT prophylaxis, and PT/OT as per primary team -AVSS CAD s/p CABG--stable -Continue Plavix when ok with ortho surgery HTN--stable, no home meds HLD -Continue Zocor 40 mg PO qd Neuropathy--pt states is improving postop -Continue gabapentin 100 mg PO TID prn Anxiety -Continue Xanax 0.25 mg PO hs prn Hypothyroidism -Continue Synthroid 112 mcg PO qd BPH -Continue Proscar 5 mg PO qd -Pt with good urine output GERD -Continue Zantac 300 mg PO hs Code Status -Level I, FULL RESUSCITATION STATUS Pt. is stable from a medical standpoint, we will sign off. Clear for discharge as per primary team. (Cayla Alejo ., FRANKOC) I agree with PA assessment and plan and have seen and examined pt myself Resting comfortably in bed VSS Labs reviewed Pain controlled at this time Pt denies any BM Dispo, DVT ppx per primary team No further recommendations at this time WILL SIGN OFF, THANK YOU FOR THE CONSULTATION (Bebo Sam, D.OKiko)
[2017-04-25 11:46] VITALS: BP 111/51; PULSE 75; O2SAT 94
--- NOTE | 2017-04-25 13:44 | Progress Note ---
Progress Note Date of Service Apr 25, 2017.
--- NOTE | 2017-04-25 13:46 | Progress Note ---
Progress Note Date of Service Apr 25, 2017. Progress Note Back pain controlled leg pain markedly improved. Vital signs are stable. On exam he is in chair at bedside as good strength testing appears comfortable. Assessment status post lumbar depression fusion replant this time will continue physical therapy anticipate home the next few days.
[2017-04-25 15:25] VITALS: BP 150/72; PULSE 88; TEMP 36.5; O2SAT 92
[2017-04-25] MEDS: SIMVASTATIN 40 MG TAB PO SCH (21:10)
[2017-04-25] MEDS: FINASTERIDE 5 MG TAB PO SCH (21:10)
[2017-04-25] MEDS: DOCUSATE SODIUM/SENNA 50/8.6MG TAB PO SCH (21:10)
[2017-04-25] MEDS ORDERED: ZOLPIDEM TARTRATE 12.5 MG PO SCH (22:00)
[2017-04-25 23:00] VITALS: BP 150/69; PULSE 82; TEMP 36.7; O2SAT 94
[2017-04-26] MEDS: LEVOTHYROXINE 112 MCG TAB PO SCH (05:43)
[2017-04-26] MEDS ORDERED: POLYETHYLENE (MIRALAX) 17 GM PACK PO SCH (06:00)
[2017-04-26 07:01] LABS: MEAN CELL VOLUME 91.8 fL (80-100); MEAN CORPUSCULAR HEMOGLOBIN 30.8 pg (25-34); MEAN CORPUSCULAR HGB CONC 33.6 g/dl (32-36); PLATELET COUNT 175 K/uL (130-400); RED BLOOD COUNT 4.25 M/uL (4.7-6.1)
[2017-04-26 07:02] VITALS: BP 138/65; PULSE 101; TEMP 36.3; O2SAT 94
[2017-04-26 07:35] LABS: CALCIUM 8.9 mg/dl (8.5-10.1); CREATININE 1.13 mg/dl (0.60-1.40)
[2017-04-26] MEDS: PANTOprazole SOD 40 MG TAB PO SCH (08:38)
[2017-04-26] MEDS ORDERED: RXC5 PO (09:48)
--- NOTE | 2017-04-26 09:49 | Discharge Instructions ---
Discharge Instructions Date of Service Apr 26, 2017. Admission Reason for Admission: Lumbar Spinal Stenosis Discharge Discharge Diagnosis / Problem: lumbar stenosis Discharge Goals Goal(s): Improve function Activity Recommendations Activity Limitations: per Instructions/Follow-up section . Instructions / Follow-Up Instructions / Follow-Up ACTIVITY RECOMMENDATIONS: SELF CARE INSTRUCTIONS AFTER THORACIC/LUMBAR FUSIONS 1. You may walk to your tolerance. It is good exercise for your legs and back. Expect some back and intermittent leg aches and pains. 2. You may perform "counter-top" level activities (make a sandwich, mitchell with a project, etc.). 3. No bending or lifting of more than 10 pounds or back twisting of any nature (roll like a log when turning in bed). 4. You may ride in a car for 20-30 minutes at a time. No driving until after your first visit with your doctor. 5. Frequent changes of position and restricting sitting to 30 minutes at a time will help limit the amount of back spasms and stiffness you may experience. 6. You may discontinue the use of ambulatory aids (cane, crutches, etc.) once your strength and confidence allow. 7. You may human services instructor the shower and let water strike your incision when you arrive home at least once daily. Do not take a tub bath, sit in a hot tub or go into a swimming pool until after your first recheck in the office. SPECIAL CARE INSTRUCTIONS: VERY IMPORTANT TO READ AND REVIEW A. Your surgical incision has been closed with a cosmetic suture under the skin that will dissolve in about 6 weeks. In 14 days, you can use a pair of clean scissors and cut the suture that is left outside of the skin at the ends of your incision. 1. The small skin tapes can be removed 7 days after surgery if they have not fallen off by that point. 2. You may keep the wound open to air as much as possible to promote healing after post-op day number 5 unless told otherwise by your doctor. 3. If you think the wound looks like it is becoming infected (redness or worsening drainage) and/or you are experiencing fever, chill or worsening back pain and muscle spasms, contact the office so that we may evaluate you as soon as possible. B. Complications are uncommon, but please contact us if you have any signs or symptoms of: 1. wound infection (fever higher than 102.5 degrees F, redness, separation of wound, drainage, or increasing pain from the incision) 2. blood clots in legs (pain, swelling, redness and warmth in legs) 3. urinary tract infection (fever higher than 102.5 degrees F, burning upon urination or increased frequency of urination) 4. nerve problems (inability to walk on your toes or heels, numbness, loss of bowel or bladder control) 5. any other symptoms that concern you C. Please call the office at if you have any concerns or questions about your operation or recovery. D. No smoking! Smoking drastically decreases the chance of a solid fusion. E. Do not take any anti-inflammatory medications (Indocin, Advil, Motrin, Aspirin, Naprosyn, etc.) as these may inhibit the chance of a solid fusion. Tylenol is okay to take for pain. MANAGING PAIN AFTER SPINAL SURGERY 1. Narcotic medication is intended for short-term use and will be provided for surgical pain. Surgical pain usually lasts for a period of 4-6 weeks. Narcotic medication includes Percocet, Vicodin, Darvocet, Tylenol #3 or Lortab. 2. Longer-term pain is more appropriately treated with non-narcotic medication such as Tylenol ES. 3. Muscle spasm is not appropriately treated with narcotics. Muscle relaxers such as Soma, Flexeril or Skelaxin can be used along with Tylenol ES. 4. Remember that we all live with some "aches and pains". This is not unusual or uncommon after an injury or as we get older. a. Back pain is expected and may include muscle spasms for 4 to 6 weeks after surgery. The pain should gradually improve. If the pain worsens for no apparent reason, please contact the office. b. Intermittent leg pain may also be experienced and should not be concerned about unless it worsens for no apparent reason. If so, please contact the office. 5. We will provide appropriate medication within the normal guidelines of their prescribed use. We will also be very cautious and aware of potential abuse and extended duration of patients' medication needs. a. Pain medications are for your comfort and to assist with sleep and rest so that the tissue can heal. They are not provided in order to return to normal activity and should not be used through the day. To do so or worsening pain at night can result from ongoing tissue damage and development of tolerance to the prescribed medicine. 6. Please allow 2-3 days to process refills. Prescriptions will not be mailed but must be picked up at the office. FOLLOW UP VISIT: Keep your scheduled follow-up appointment. Any questions, please call the office at . Current Hospital Diet Patient's current hospital diet: Regular Diet Discharge Diet Recommended Diet: Regular Diet Procedures Procedures Performed: #1 lumbar decompression medial facetectomies foraminotomies L2 3 L3 4. #2 posterior spinal fusion L3 4. #3 placement of posterior instrumentation L3 4. #4 placement of locally harvested morcellized autograft posterior gutters. #5 placement infuse collagen sponge combined Master graft and posterior gutters. Pending Studies Studies pending at discharge: no Medical Emergencies . Who to Call and When: Medical Emergencies: If at any time you feel your situation is an emergency, please call 911 immediately. . Non-Emergent Contact Non-Emergency issues call your: Primary Care Provider . "Provider Documentation" section prepared by Donnell Christensen. . VTE Core Measure Inpt VTE Proph given/why not?: Nabil Gamino, SCD's
[2017-04-26 10:30] VITALS: BP 138/65; PULSE 101; TEMP 36.3; O2SAT 94
--- NOTE | 2017-04-26 12:27 | Discharge Summary ---
Orthopedic Discharge Summary Admission Date/Reason Apr 24, 2017 at 09:36 Lumbar Spinal Stenosis. Discharge Date/Disposition Apr 26, 2017 Home Diagnosis Principal Diagnosis: Lumbar spinal stenosis Admission Physical Exam As per Admitting History & Physical. Hospital Course Patient underwent lumbar decompression fusion tolerated this well as taken to the orthopedic floor postoperatively. Postoperative day #1 is up in amatory leg symptoms markedly improved. On postoperative day #2 LICO drain decreased improperly pain well controlled subsequently discharged home. Discharge orders and instructions found the chart for further review. Discharge Instructions Please refer to the electronic Patient Visit Report (Discharge Instructions) for additional information.
== END 2017-04-26 11:48 | disposition home or self-care (01) | DRG 460 ==
LOC: C.ACU 08:11 → C.3E 09:36 → ENRESERV 12:45
PROVIDERS: ADMIT Orthopaedic Surgery Orthopaedic Surgery of the Spine; ATTEND Orthopaedic Surgery Orthopaedic Surgery of the Spine
PROC: 0SG1071 Fusion of 2 or more Lumbar Vertebral Joints with Autologous Tissue Substitute, Posterior Approach, Posterior Column, Open Approach (ICD-10-PCS; principal; 2017-04-24 10:15)
PROC: 01NB0ZZ Release Lumbar Nerve, Open Approach (ICD-10-PCS; principal; 2017-04-24 10:15)
DX: M48.061 Spinal stenosis, lumbar region without neurogenic claudication (principal); R00.0 Tachycardia, unspecified; I25.10 Atherosclerotic heart disease of native coronary artery without angina pectoris; I10 Essential (primary) hypertension; E78.5 Hyperlipidemia, unspecified; N40.0 Benign prostatic hyperplasia without lower urinary tract symptoms; E03.9 Hypothyroidism, unspecified; K21.9 Gastro-esophageal reflux disease without esophagitis; G62.9 Polyneuropathy, unspecified; F41.9 Anxiety disorder, unspecified; Z95.1 Presence of aortocoronary bypass graft; Z87.891 Personal history of nicotine dependence; Z79.02 Long term (current) use of antithrombotics/antiplatelets; Z79.1 Long term (current) use of non-steroidal anti-inflammatories (NSAID); Z79.899 Other long term (current) drug therapy; Z82.3 Family history of stroke; Z80.42 Family history of malignant neoplasm of prostate

== ENCOUNTER 2019-03-24 10:25 | Inpatient (IN) ==
[2019-03-24 11:20] LABS: Basophils # (auto) 0.04 K/uL (0-0.2); Basophils % (auto) 0.4 %; Eosinophils % (auto) 4.2 %; Hematocrit (blood only) 38.5 % (42-52); Hemoglobin 12.9 g/dL (14.0-18.0); Immature Granulocytes # (auto) 0.01 K/uL (0.00-0.02); Immature Granulocytes % (auto) 0.1 %; Lymphocytes # (auto) 1.61 K/uL (1.2-3.4); Lymphocytes % (auto) 17.1 %; Mean Corpuscular Hemoglobin 30.6 pg (25-34); Mean Corpuscular Hgb Conc 33.5 g/dL (32-36); Mean Corpuscular Volume 91.4 fL (80-100); Mean Platelet Volume 9.7 fL (7.4-10.4); Monocytes # (auto) 0.76 K/uL (0.11-0.59); Monocytes % (auto) 8.1 %; Neutrophils # (auto) 6.62 K/uL (1.4-6.5); Neutrophils % (auto) 70.1 %; Platelet Count 215 K/uL (130-400); RDW Coefficient of Variation 15.8 % (11.5-14.5); RDW Standard Deviation 52.9 fL (36.4-46.3); Red Blood Count 4.21 M/uL (4.7-6.1); White Blood Count 9.44 K/uL (4.8-10.8)
--- NOTE | 2019-03-24 11:32 | Emergency Department Note ---
Entered by Charisma Alanis acting as a scribe for Marck Ramirez DO History of Present Illness General Chief complaint: Cardiac Assessment Stated complaint: SENT FROM [facility], CARDIAC ASSESSMENT Time Seen by Provider: 03/24/19 11:12 Source: patient History of Present Illness Onset (ago): week(s) (2-3) Location: chest Pain Consistency: + constant Maximum Pain Intensity: 0 Quality: + other (breathing issues) Exacerbated By: + other (exertion) Associated symptoms: + other (-black/bloody stool); no chest pain and no nausea/vomiting The patient is an 88 year old male, with past medical history of CHF and triple bypass surgery, who presents to the Emergency Room with complaints of constant breathing issues over the past 2-3 weeks. The patient states it was worse upon exertion, but he states he has no problems laying flat. The patient notes the breathing issues has not changed over this time period. The patient notes he was seen here in the ED the other day, and he states he was told he had a AK. The patient states he could not stay at hospital because he had to go home to take care of his diabetic . The patient also notes he saw his pastry sous chef 2-3 weeks ago when he states he was told the electricity from one side of his heart is lower than the other. The patient denies black/bloody stool, chest pain, or nausea/vomiting. The patient also denies ever having stents placed in or receiving a heart cath. The patient notes he has been losing weight recently as he states he has not been eating as much. The patient also notes he is on Lasix. The patient states he had an echo completed down the street earlier today with his pastry sous chef. Home Medications Home Medications Medication Instructions Recorded Confirmed Type aspirin 81 mg tablet,delayed 81 mg PO MONWEDFRI tab 12/18/18 03/24/19 History release clopidogrel 75 mg tablet 75 mg PO QAM #90 tab 12/18/18 03/24/19 History esomeprazole magnesium 40 mg 40 mg PO QAM #90 cap 12/18/18 03/24/19 History capsule,delayed release finasteride 5 mg tablet 5 mg PO QAM #90 tab 12/18/18 03/24/19 History simvastatin 40 mg tablet 40 mg PO QAM #90 tab 12/18/18 03/24/19 History ranitidine 150 mg capsule 300 mg PO QPM PRN #90 cap 02/11/19 03/24/19 History alprazolam 0.25 mg tablet 0.25 mg PO DAILY PRN #45 tab 02/20/19 03/24/19 Rx nitroglycerin 0.4 mg sublingual 0.4 mg SL Q5M PRN #25 tab 03/10/19 03/24/19 Rx tablet zolpidem ER 12.5 mg 12.5 mg PO QPM #30 tab 03/13/19 03/24/19 Rx tablet,extended release,multiphase furosemide 20 mg tablet 20 mg PO QAM tab 03/19/19 03/24/19 History gabapentin 100 mg capsule See Rx Instructions PO .COMPLEX 03/19/19 03/24/19 History PRN cap levothyroxine 112 mcg PO QAM 03/24/19 03/24/19 History Allergies Allergy/AdvReac Type Severity Reaction Status Date / Time atorvastatin AdvReac U MYALGIA Verified 03/24/19 13:02 Past Med/Surg History Medical History CAD (coronary artery disease) CHF (congestive heart failure) Hyperlipidemia Hypothyroidism Angina pectoris, unspecified Disequilibrium Surgical History History of coronary artery bypass graft x 3 Family History Mother Stroke syndrome Diabetes Unknown Acquired arteriovenous malformation of colon with hemorrhage Father Prostate cancer Social History Preferred Language: Tajik Communication Ability: Effective Visual Impairment: No Limitations Hearing Ability: Normal [place] Required: Yes and No Beliefs That Will Affect Care: None marital status: Current Living Situation: Spouse Current Living Situation Comment: 1 cat current occupational status: retired Feels Safe at Home: Yes Smoking Status: Former smoker Tobacco Type: cigarettes ; Age Quit Using Tobacco: 48 ; packs per day: 1 ; Second Hand Exposure: No ; Hx Alcohol Use: No Hx Substance Use: No Childhood Exposure to Second-Hand Smoke: No caffeine: Yes Dental Care, Regularly: Yes Physical Activity Frequency: 1-2 Times per Week Seatbelt Use: always Sunscreen Use: No Review of Systems See HPI for pertinent positives & negatives. and A total of 10 systems reviewed and were otherwise negative Physical Exam Vital Signs Vital Signs - 24 hr 03/24/19 10:36 03/24/19 11:08 03/24/19 11:11 Temperature 36.4 C L Temperature Source Oral Sepsis Recent Fever Within 48 Hours No Sepsis New/Unexplained Change in Mental Status No Sepsis Action Taken by Nursing No Action Required Pulse Rate 89 83 84 Pulse Rate [Right Finger] Pulse Rate from SpO2 Sensor 83 83 Respiratory Rate 18 Respiratory Effort / Characteristics Respiratory Depth Respiratory Pattern Blood Pressure 116/73 121/76 Blood Pressure [Right Arm] Blood Pressure Mean 87 91 Blood Pressure Mean [Right Arm] Pulse Oximetry 95 87 L 88 L Oxygen Delivery Method Room Air Nasal Cannula Oxygen Flow Rate 2 03/24/19 11:14 03/24/19 11:30 03/24/19 12:00 Temperature Temperature Source Sepsis Recent Fever Within 48 Hours Sepsis New/Unexplained Change in Mental Status Sepsis Action Taken by Nursing Pulse Rate 83 83 83 Pulse Rate [Right Finger] Pulse Rate from SpO2 Sensor 83 83 Respiratory Rate 20 24 20 Respiratory Effort / Characteristics Respiratory Depth Respiratory Pattern Blood Pressure Blood Pressure [Right Arm] Blood Pressure Mean Blood Pressure Mean [Right Arm] Pulse Oximetry 88 L 88 L 92 Oxygen Delivery Method Room Air Nasal Cannula Nasal Cannula Oxygen Flow Rate 2 2 2 03/24/19 12:30 03/24/19 13:00 03/24/19 13:29 Temperature Temperature Source Sepsis Recent Fever Within 48 Hours Sepsis New/Unexplained Change in Mental Status Sepsis Action Taken by Nursing Pulse Rate 86 84 Pulse Rate [Right Finger] 84 Pulse Rate from SpO2 Sensor 87 85 Respiratory Rate 21 19 22 Respiratory Effort / Characteristics Non-Labored Spontaneous Respiratory Depth Normal Respiratory Pattern Regular Blood Pressure 121/76 Blood Pressure [Right Arm] 121/76 Blood Pressure Mean 91 Blood Pressure Mean [Right Arm] 91 Pulse Oximetry 91 94 97 Oxygen Delivery Method Nasal Cannula Oxygen Flow Rate 2 03/24/19 13:32 03/24/19 13:33 Temperature Temperature Source Sepsis Recent Fever Within 48 Hours Sepsis New/Unexplained Change in Mental Status Sepsis Action Taken by Nursing Pulse Rate 83 86 Pulse Rate [Right Finger] Pulse Rate from SpO2 Sensor 86 Respiratory Rate 21 23 Respiratory Effort / Characteristics Respiratory Depth Respiratory Pattern Blood Pressure 133/97 Blood Pressure [Right Arm] Blood Pressure Mean 109 Blood Pressure Mean [Right Arm] Pulse Oximetry 92 Oxygen Delivery Method Nasal Cannula Oxygen Flow Rate 2 GENERAL: Patient is awake alert in no acute distress patient is resting comfortably and showing no signs of anxiety EYES: The conjunctivae are clear. The pupils are round and reactive. EARS, NOSE, MOUTH AND THROAT: The nose is without any evidence of any deformity. Mucous membranes are moist tongue is midline NECK: The neck is nontender and supple. RESPIRATORY: Diminished breath sounds are noted throughout. There are rales in all lung duron. Mild conversational dyspnea was appreciated. CARDIOVASCULAR: Regular rate and rhythm noted there no murmurs rubs or gallops normal S1 normal S2 GASTROINTESTINAL: The abdomen is soft. Bowel sounds are present in all quadrants. Abdomen is nontender MUSCULOSKELETAL/EXTREMITIES: There is no evidence of gross deformity full range of motion is noted in the hips and shoulders SKIN: There is no obvious evidence of any rash. Skin was cool and pale. Pedal edema was noted bilaterally. NEUROLOGIC: Patient is awake alert and oriented x3. Course 1112: Past medical records reviewed. The patient was evaluated in room C11B. A complete history and physical exam was performed. 1120: The RN notes she contacted the patient's pastry sous chef's office. The RN states that there was nothing specific the cardiology office is concerned of. 1134: I discussed the patient's case with Dr. ParraCardiology. Dr. García states the patient's echo looked dramatically worse compared to baseline. Dr. García states the patient may have had an ischemic insult and may require further impatient management. 1154: I reviewed the patient's case with Nabor Pacheco [facility]. Dr. Lizandro Lee [facility] will evaluate the patient for further management. Consultations Consultation #1: I discussed the patient's case with Dr. ParraCardiology. Dr. García states the patient's echo looked dramatically worse compared to baseline. Dr. García states the patient may have had an ischemic insult and may require further impatient management. Time: 11:34 Consultation #2: I reviewed the patient's case with Nabor Pacheco [facility]. Dr. Gonzalez [facility] will evaluate the patient for further management. Time: 11:54 Administered Medications Discontinued Medications Aspirin (Aspirin) 324 mg PO NOW STA Stop: 03/24/19 11:53 Last Admin: 03/24/19 11:58 Dose: 324 mg Documented by: [id number] Furosemide (Lasix) 40 mg IV NOW STA Stop: 03/24/19 11:53 Last Admin: 03/24/19 12:02 Dose: 40 mg Documented by: [id number] Medical Decision Making Differential Diagnosis Differential diagnosis: Etiologies such as infections, reactive airway disease, pneumonia, pneumothorax, COPD, CHF, cardiac ischemia, pulmonary embolism, musculoskeletal, gastrointestinal, as well as others were entertained. Medical Records Attestation: I reviewed the patient's medical records. Home Medications Current Medication List: was personally reviewed by me Laboratory Data Attestation: I reviewed the patient's lab results. Result diagrams: 03/24/19 11:05 03/24/19 11:05 Lab Results 03/24/19 03/24/19 03/24/19 Range/Units 11:05 11:05 11:05 WBC 9.44 (4.8-10.8) K/uL RBC 4.21 L (4.7-6.1) M/uL Hgb 12.9 L (14.0-18.0) g/dL Hct 38.5 L (42-52) % MCV 91.4 (80-100) fL MCH 30.6 (25-34) pg MCHC 33.5 (32-36) g/dL RDW Std Deviation 52.9 H (36.4-46.3) fL RDW Coeff of Gely 15.8 H (11.5-14.5) % Plt Count 215 (130-400) K/uL MPV 9.7 (7.4-10.4) fL Immature Gran % (Auto) 0.1 % Neut % (Auto) 70.1 % Lymph % (Auto) 17.1 % [place] % (Auto) 8.1 % Eos % (Auto) 4.2 % Baso % (Auto) 0.4 % Immature Gran # (Auto) 0.01 (0.00-0.02) K/uL Neut # (Auto) 6.62 H (1.4-6.5) K/uL Lymph # (Auto) 1.61 (1.2-3.4) K/uL [place] # (Auto) 0.76 H (0.11-0.59) K/uL Eos # (Auto) 0.40 (0-0.5) K/uL Baso # (Auto) 0.04 (0-0.2) K/uL PT 11.6 (9.0-12.0) Seconds INR 1.1 (0.9-1.1) APTT 27.3 (21.0-31.0) Seconds PTT Ratio 1.0 Sodium 138 (136-145) mmol/L Potassium 4.0 (3.5-5.1) mmol/L Chloride 106 (98-107) mmol/L Carbon Dioxide 26 (21-32) mmol/L Anion Gap 6.0 (3-11) BUN 21 H (7-18) mg/dl Creatinine 1.59 H (0.6-1.4) mg/dl Est Cr Clr Drug Dosing 34.4 ml/min Est GFR ( Amer) 44.9 Est GFR (Non-Af Amer) 38.7 BUN/Creatinine Ratio 13.1 (10-20) Glucose 83 (70-99) mg/dl Calcium 8.8 (8.5-10.1) mg/dl Magnesium (1.8-2.4) mg/dl Total Bilirubin 0.7 (0.2-1) mg/dl AST 25 (15-37) U/L ALT 19 (12-78) U/L Alkaline Phosphatase 90 (45-117) U/L Total Creatine Kinase 79 (39-308) U/L CK-MB (CK-2) 2.3 (0.5-3.6) ng/ml CK/CKMB % Calc 2.9 (0-3.0) Troponin I 0.112 H* (0-0.045) ng/ml NT-Pro-B Natriuret Pep 72826 H (0-1800) pg/ml Total Protein 7.5 (6.4-8.2) gm/dl Albumin 3.3 L (3.4-5.0) gm/dl Globulin 4.2 H (2.5-4.0) gm/dl Albumin/Globulin Ratio 0.8 L (0.9-2) Lipase 110 (73-393) U/L 03/24/19 Range/Units 11:05 WBC (4.8-10.8) K/uL RBC (4.7-6.1) M/uL Hgb (14.0-18.0) g/dL Hct (42-52) % MCV (80-100) fL MCH (25-34) pg MCHC (32-36) g/dL RDW Std Deviation (36.4-46.3) fL RDW Coeff of Gely (11.5-14.5) % Plt Count (130-400) K/uL MPV (7.4-10.4) fL Immature Gran % (Auto) % Neut % (Auto) % Lymph % (Auto) % [place] % (Auto) % Eos % (Auto) % Baso % (Auto) % Immature Gran # (Auto) (0.00-0.02) K/uL Neut # (Auto) (1.4-6.5) K/uL Lymph # (Auto) (1.2-3.4) K/uL [place] # (Auto) (0.11-0.59) K/uL Eos # (Auto) (0-0.5) K/uL Baso # (Auto) (0-0.2) K/uL PT (9.0-12.0) Seconds INR (0.9-1.1) APTT (21.0-31.0) Seconds PTT Ratio Sodium (136-145) mmol/L Potassium (3.5-5.1) mmol/L Chloride (98-107) mmol/L Carbon Dioxide (21-32) mmol/L Anion Gap (3-11) BUN (7-18) mg/dl Creatinine (0.6-1.4) mg/dl Est Cr Clr Drug Dosing ml/min Est GFR ( Amer) Est GFR (Non-Af Amer) BUN/Creatinine Ratio (10-20) Glucose (70-99) mg/dl Calcium (8.5-10.1) mg/dl Magnesium 2.2 (1.8-2.4) mg/dl Total Bilirubin (0.2-1) mg/dl AST (15-37) U/L ALT (12-78) U/L Alkaline Phosphatase (45-117) U/L Total Creatine Kinase (39-308) U/L CK-MB (CK-2) (0.5-3.6) ng/ml CK/CKMB % Calc (0-3.0) Troponin I (0-0.045) ng/ml NT-Pro-B Natriuret Pep (0-1800) pg/ml Total Protein (6.4-8.2) gm/dl Albumin (3.4-5.0) gm/dl Globulin (2.5-4.0) gm/dl Albumin/Globulin Ratio (0.9-2) Lipase (73-393) U/L Imaging Data Radiologist's Impression: Radiology results as stated below per my review and the radiologist's interpretation: XR chest 1V portable CLINICAL HISTORY: Chest Pain dyspnea COMPARISON STUDY: 03/17/2019 FINDINGS: Mild cardiomegaly. Prior median sternotomy. Chronic bibasilar interstitial change. Minimal upper lungs are clear. IMPRESSION: Chronic basilar interstitial change. Mild cardiomegaly. No acute infiltrate. The above report was generated using voice recognition software. It may contain grammatical, syntax or spelling errors. Electronically signed by: Paolo Carter M.D. 03/24/2019 11:38 AM ECG Data Attestation: I personally reviewed and interpreted this ECG as follows: Indication: SOB/dyspnea Rate (beats per minute): 81 Rhythm: normal sinus Findings: + ST depression; no PAC, no PVC and no ectopy Comparison ECG Date: from (03/27/19) Change: no significant change Blood Pressure Blood Pressure Findings: Elevated blood pressure Blood Pressure Disposition: elevated BP felt to be situational MDM Narrative The patient is an 88-year-old male who presented to the emergency department for an evaluation of difficulty breathing. The patient was seen in our facility recently for similar complaints. At that time it was advised the patient stay in the hospital for further inpatient management given his cardiac history and the findings of pulmonary edema. The patient decided to leave the hospital at that time and did not wish to stay in the hospital because he needs to take care of his significant other. The patient presented to his primary pastry sous chef for an echocardiogram and was sent to the emergency department today because the echocardiogram showed significant changes from previous including wall motion abnormalities in the inferior segments. I discussed the patient's laboratory and radiographic studies with him. The patient was treated with Lasix and aspirin in the emergency department. I discussed his case with his primary pastry sous chef but I also discussed his case with the on-call [facility] hospitalist group. They have agreed to evaluate the patient in the emergency department for further management disposition. Impression & Plan CHF (congestive heart failure), Elevated troponin, Hypoxia, Abnormal echocardiogram Discharge Plan Visit Data *Final* Discharge Date/Time: 03/24/19 16:27 Chief Complaint: Cardiac Assessment Stated Complaint: SENT FROM DR. GARCÍA, [facility], CARDIAC ASSESSMENT ED Provider: Marck Ramirez Discharge Problem: CHF (congestive heart failure), Elevated troponin, Hypoxia, Abnormal e chocardiogram Patient Disposition: Admitted As Inpatient Discharge Instructions Interventions: ED Discharge Assessment Last Done: 03/24/19 16:27 Discharge Problem: CHF (congestive heart failure) Qualifiers: Heart failure type: unspecified Heart failure chronicity: unspecified Qualified Code(s): I50.9 - Heart failure, unspecified The scribe's documentation has been prepared under my direction and personally reviewed by me in its entirety. I confirm that the note above accurately reflects all work, treatment, procedures, and medical decision making performed by me.
[2019-03-24 11:33] LABS: INR 1.1 (0.9-1.1); Partial Thromboplastin Time 27.3 Seconds (21.0-31.0); Prothrombin Time 11.6 Seconds (9.0-12.0)
[2019-03-24 11:36] LABS: Albumin Level 3.3 gm/dl (3.4-5.0); BUN Creatinine Ratio 13.1 (10-20); Calcium 8.8 mg/dl (8.5-10.1); Creatinine Clr Calc Pharmacy 34.4 ml/min; Est GFR (African American) 44.9; Est GFR (Non-African American) 38.7
--- NOTE | 2019-03-24 11:39 | XRay Report ---
XR chest 1V portable CLINICAL HISTORY: Chest Pain dyspnea COMPARISON STUDY: 03/17/2019 FINDINGS: Mild cardiomegaly. Prior median sternotomy. Chronic bibasilar interstitial change. Minimal upper lungs are clear. IMPRESSION: Chronic basilar interstitial change. Mild cardiomegaly. No acute infiltrate. The above report was generated using voice recognition software. It may contain grammatical, syntax or spelling errors. Electronically signed by: Paolo Carter M.D. 03/24/2019 11:38 AM
[2019-03-24 11:44] LABS: Albumin Globulin Ratio 0.8 (0.9-2); Bilirubin,Total 0.7 mg/dl (0.2-1); Creatine Kinase MB 2.3 ng/ml (0.5-3.6); Globulin 4.2 gm/dl (2.5-4.0); Total Protein 7.5 gm/dl (6.4-8.2); Troponin I 0.112 ng/ml (0-0.045)
[2019-03-24] MEDS ORDERED: FUROSEMIDE 40 MG/4 ML VIAL IV STA (11:52)
[2019-03-24] MEDS ORDERED: ASPIRIN CHEW 324 MG PO STA (11:52)
--- NOTE | 2019-03-24 13:45 | History & Physical Report ---
Date of Service March 24, 2019 Assessment & Plan (1) Exertional dyspnea: No home supplemental oxygen use No prior pulmonary disease Chest x-ray with no acute findings Continue to work-up for cardiac etiology. (2) Abnormal echocardiogram: Patient with ejection fraction of about 30% and akinesis of inferior wall Echocardiogram completed this morning Dr. García is aware and will see the patient on the floor Patient has been kept n.p.o. Last intake of any sort was 07:[address] did place a diet order for starting for dinner if her procedure is not going to be done today. No acute distress Follow per cardiology (3) Elevated troponin: Troponin 0 0.172 on 03/17/2019. Now 0.112. Patient denies chest pain or tightness. proBNP is elevated. Patient did receive furosemide Continue to treat for CHF. proBNP was 10,000 963 on 03/17/2019. proBNP is now 10,000. No significant edema appreciated. (4) CHF (congestive heart failure): Echocardiogram with ejection fraction of 30% No overt findings on exam No evidence of cor pulmonale Elevated proBNP at 10,000 Furosemide Continue to monitor clinically (5) Hyperlipidemia: Continue simvastatin (6) Neuropathy: Patient uses gabapentin 100 mg up to 3 times daily as needed We will hold gabapentin this admission Resume as needed on discharge (7) TIA (transient ischemic attack): Patient chronically on clopidogrel Plavix has been held as of the admission. Last dose of Plavix 03/24/19 AM No current neurological deficits appreciated (8) Hypothyroidism: Continue levothyroxine (9) DVT prophylaxis: Patient chronically on clopidogrel as an outpatient MILAN hose/SCDs will be ordered this admission No other chemical prophylaxis at this time pending cardiology evaluation Please refer to Dr. Jesús Abrams addendum for further recommendations. History of Present Illness Primary Care Provider: Ermias Nur MD Attending: Dr. Jesús Abrams This is a an 88-year-old male that presents with shortness of breath to the emergency department. He presented on 03/17/2019 and was found to have elevated troponin at 0.172 and a proBNP of 10,963. At that time he was unable to stay because of his being ill and he is a sole provider. He was referred for outpatient echocardiogram. That was completed this morning and the patient was referred immediately to the emergency department for abnormal findings and an elevated troponin of 0.112. Patient's proBNP this morning is 10,000. The patient reports that he is never had any pulmonary issues and is not on supplemental oxygen at home. Aside from some shortness of breath he has no other acute symptoms. He denies any significant edema of the lower extremities. He has no chest pain or tightness. He denies any back pain or pain radiating into the neck shoulder or arm. He has no recent illness and denies fever or chills. He has no constitutional complaints. The patient has a past medical history including myocardial infarction with three-vessel CABG in 1979, [id number] tobacco abuse history (quit smoking 40 years ago), TIA, CHF, chronically elevated troponin since August 2018, BPH, hypothyroidism, hyperlipidemia, idiopathic polyneuropathy, hypertension, history of migraines, disequilibrium. 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 Allergies Allergy/AdvReac Type Severity Reaction Status Date / Time atorvastatin AdvReac U MYALGIA Verified 03/24/19 13:02 Home Medications Home Medications Medication Instructions Recorded Confirmed Type aspirin 81 mg tablet,delayed 81 mg PO MONWEDFRI tab 12/18/18 03/24/19 History release clopidogrel 75 mg tablet 75 mg PO QAM #90 tab 12/18/18 03/24/19 History esomeprazole magnesium 40 mg 40 mg PO QAM #90 cap 12/18/18 03/24/19 History capsule,delayed release finasteride 5 mg tablet 5 mg PO QAM #90 tab 12/18/18 03/24/19 History simvastatin 40 mg tablet 40 mg PO QAM #90 tab 12/18/18 03/24/19 History ranitidine 150 mg capsule 300 mg PO QPM PRN #90 cap 02/11/19 03/24/19 History alprazolam 0.25 mg tablet 0.25 mg PO DAILY PRN #45 tab 02/20/19 03/24/19 Rx nitroglycerin 0.4 mg sublingual 0.4 mg SL Q5M PRN #25 tab 03/10/19 03/24/19 Rx tablet zolpidem ER 12.5 mg 12.5 mg PO QPM #30 tab 03/13/19 03/24/19 Rx tablet,extended release,multiphase furosemide 20 mg tablet 20 mg PO QAM tab 03/19/19 03/24/19 History gabapentin 100 mg capsule See Rx Instructions PO .COMPLEX 03/19/19 03/24/19 History PRN cap levothyroxine 112 mcg PO QAM 03/24/19 03/24/19 History Past Med/Surg History Medical History CAD (coronary artery disease) CHF (congestive heart failure) Hyperlipidemia Hypothyroidism Angina pectoris, unspecified Disequilibrium Surgical History History of coronary artery bypass graft x 3 Family History Mother Stroke syndrome Diabetes Unknown Acquired arteriovenous malformation of colon with hemorrhage Father Prostate cancer Social History Preferred Language: Pashto Communication Ability: Effective Visual Impairment: No Limitations Hearing Ability: Normal 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 marital status: Current Living Situation: Spouse Current Living Situation Comment: 1 cat current occupational status: retired Feels Safe at Home: Yes Smoking Status: Former smoker Tobacco Type: cigarettes ; Age Quit Using Tobacco: 48 ; packs per day: 1 ; Years Smoked: 20 ; Number of Years Since Quit: 40 ; Tobacco Cessation Education Requested by Patient: No Hx Alcohol Use: No Hx Substance Use: No Childhood Exposure to Second-Hand Smoke: No caffeine: Yes Dental Care, Regularly: Yes Physical Activity Frequency: 1-2 Times per Week Seatbelt Use: always Sunscreen Use: No Review of Systems Review of Systems: All systems reviewed & are unremarkable except as noted in HPI & below Physical Exam Physical Exam: GENERAL : No acute distress. EYES: No icterus, gaze conjugate. PERRL NOSE: No evidence of epistaxis MOUTH: No lesions or candidiasis. Mucosa moist NECK: Supple. No carotid bruits appreciated LUNGS: Crackles at the bases. No bronchospasm. No overt rhonchi. HEART: Regular, rate controlled. No murmurs gallops or rubs appreciated. ABDOMEN: Soft, NT, ND, BS Present EXTREMITIES: No LE edema, pedal pulses intact and equal bilaterally. NEURO: A&OX3 Results & Data Vital Signs (Past 12 Hours) Vital Signs Temp Pulse Pulse Resp BP BP Pulse Ox 03/24/19 13:33 86 23 133/97 92 03/24/19 13:32 83 21 03/24/19 13:29 84 22 121/76 97 03/24/19 13:00 84 19 121/76 94 03/24/19 12:30 86 21 91 03/24/19 12:00 83 20 92 03/24/19 11:30 83 24 88 L 03/24/19 11:14 83 20 88 L 03/24/19 11:11 84 88 L 03/24/19 11:08 83 121/76 87 L 03/24/19 10:36 36.4 C L 89 18 116/73 95 Laboratory Results 03/24/19 11:05 03/24/19 11:05 Laboratory Tests 03/10/19 03/17/19 03/24/19 15:24 16:55 11:05 Troponin I 0.172 H* 0.112 H* NT-Pro-B Natriuret Pep 57331 H 01710 H TSH 1.350 Diagnostic Findings XR chest 1V portable CLINICAL HISTORY: Chest Pain dyspnea COMPARISON STUDY: 03/17/2019 FINDINGS: Mild cardiomegaly. Prior median sternotomy. Chronic bibasilar interstitial change. Minimal upper lungs are clear. IMPRESSION: Chronic basilar interstitial change. Mild cardiomegaly. No acute infiltrate. The above report was generated using voice recognition software. It may contain grammatical, syntax or spelling errors. Electronically signed by: Paolo Carter M.D. 03/24/2019 11:38 AM Supervising Physician Co-Signing Physician Notes Patient seen and examined with Nabor PARRA. I agree with his HPI, history, ROS, physical exam and A/P. Case was discussed with imr as well as the ortiz points in treatment. I personally reviewed the lab work and imaging and other diagnostic studies. Case was discussed with Dr. García, cardiology, at the time of admission. he is recommending Toprol and lasix, will allow the patient to eat today. likely can go home tomorrow - New onset systolic heart failure: EF is 30%, likely from CT a few weeks ago cardiology recommends Toprol 25mg daily and Lasix 40mg PO daily will reassess volume status tomorrow and likely discharge to home with close follow up with cardiology and the CHF clinic repeat BMP in the AM PG Care Time/CCT Total # of Minutes Spent Total Time Spent with Patient: Total time spent is greater than 50% in coordination of care (as documented) at patient's floor/unit and/or counseling patient: 60 (1) CHF (congestive heart failure) Heart failure chronicity: unspecified Heart failure type: unspecified Qualified Code(s): I50.9 - Heart failure, unspecified (2) Hypothyroidism Hypothyroidism type: acquired Qualified Code(s): E03.9 - Hypothyroidism, unspecified
--- NOTE | 2019-03-24 16:18 | Cardiology Consultation ---
Date of Consultation March 24, 2019 Assessment & Plan (1) CHF (congestive heart failure): Suspect the patient may suffered an inferolateral AR approximately 3 weeks ago with a resultant ischemic cardiomyopathy and acute systolic CHF. The patient has responded well to intravenous Lasix. Would continue a daily dose intravenous Lasix, and consider adding metoprolol succinate 12.5 or 25 mg daily. Renal function may limit our ability to use an ACEI or ARB. We have discussed conservative versus aggressive measures. As his event likely happened 3 weeks ago, and he has not been experiencing angina pectoris, we will start with conservative measures, and only proceed with a cardiac cath eterization if medical management fails. (2) Elevated troponin: Troponin is elevated, but trending down. As above, suspect he had a myocardial infarction approximately 3 weeks ago. (3) Abnormal echocardiogram: Echocardiogram this morning in our office noted in inferolateral wall motion abnormality and an ejection fraction of 30-35 percent. (4) Coronary arteriosclerosis: The patient had a 3 vessel bypass performed in 1979. He has not experienced exertional angina pectoris since that time. History of Present Illness History of Present Illness Mr. Wong is an 88-year-old male sent from our office for hospital admission due to an abnormal echocardiogram performed today. The patient was in his usual state of health until approximately 3 weeks ago began to note exertional dyspnea with most physical activity. He was seen by Mylene Ballard PA-C on March 10 and a troponin I level is elevated 0.304. His EKG demonstrated new ST and T-wave changes and therefore, it was recommended that he proceed to the emergency room for further care. The patient's symptoms continued. He eventually went to the emergency room on March 17 again complaining of exertional dyspnea. A troponin I level was down to 0.17 to, but hospitalization was recommended. The patient refused explaining that he had to care for his at home. He was started on Lasix 20 mg daily at that time. He presented to our office this morning for an outpatient echocardiogram. This revealed an inferolateral wall motion abnormality and ejection fraction of 30- 35%. I discussed the case with our java technical architect and we suggested that the patient proceed emergency room for further care. At no time has the patient experienced exertional chest discomfort. He further denies PND and orthopnea, however, has noted some lower extremity edema. He denies syncope, presyncope, palpitations, and claudication. On arrival to our emergency room today, patient received Lasix 40 mg IV. He has had a brisk diuresis and is now not experiencing exertional dyspnea with ambulation. We have discussed aggressive versus conservative measures. The patient has opted to undertake a trial of medications prior to proceeding with a cardiac catheterization. Currently, patient is resting comfortably in bed without complaints. Past medical and surgical history 1. Coronary artery disease 2. CABG x -1979 3. Hypertension 4. Hypercholesterolemia 5. GERD 6. Hypothyroidism 7. BPH 8. Diverticulitis 9. Migraine headaches 10. Lumbar spinal stenosis 11. 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 Review of systems A 10 point review of systems was negative except for that described above. Allergies Allergy/AdvReac Type Severity Reaction Status Date / Time atorvastatin AdvReac U MYALGIA Verified 03/24/19 13:02 Home Medications Home Medications Medication Instructions Recorded Confirmed Type aspirin 81 mg tablet,delayed 81 mg PO MONWEDFRI tab 12/18/18 03/24/19 History release clopidogrel 75 mg tablet 75 mg PO QAM #90 tab 12/18/18 03/24/19 History esomeprazole magnesium 40 mg 40 mg PO QAM #90 cap 12/18/18 03/24/19 History capsule,delayed release finasteride 5 mg tablet 5 mg PO QAM #90 tab 12/18/18 03/24/19 History simvastatin 40 mg tablet 40 mg PO QAM #90 tab 12/18/18 03/24/19 History ranitidine 150 mg capsule 300 mg PO QPM PRN #90 cap 02/11/19 03/24/19 History alprazolam 0.25 mg tablet 0.25 mg PO DAILY PRN #45 tab 02/20/19 03/24/19 Rx nitroglycerin 0.4 mg sublingual 0.4 mg SL Q5M PRN #25 tab 03/10/19 03/24/19 Rx tablet zolpidem ER 12.5 mg 12.5 mg PO QPM #30 tab 03/13/19 03/24/19 Rx tablet,extended release,multiphase furosemide 20 mg tablet 20 mg PO QAM tab 03/19/19 03/24/19 History gabapentin 100 mg capsule See Rx Instructions PO .COMPLEX 03/19/19 03/24/19 History PRN cap levothyroxine 112 mcg PO QAM 03/24/19 03/24/19 History Patient History Medical History CAD (coronary artery disease) CHF (congestive heart failure) Hyperlipidemia Hypothyroidism Angina pectoris, unspecified Disequilibrium Surgical History History of coronary artery bypass graft x 3 Family History Mother Stroke syndrome Diabetes Unknown Acquired arteriovenous malformation of colon with hemorrhage Father Prostate cancer Social History Preferred Language: Peruvian Communication Ability: Effective Visual Impairment: No Limitations Hearing Ability: Normal 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 Cleaner Required: No marital status: Current Living Situation: Spouse Current Living Situation Comment: 1 cat current occupational status: retired Feels Safe at Home: Yes Smoking Status: Former smoker Tobacco Type: cigarettes ; Age Quit Using Tobacco: 48 ; packs per day: 1 ; Years Smoked: 20 ; Number of Years Since Quit: 40 ; Tobacco Cessation Education Requested by Patient: No Hx Alcohol Use: No Hx Substance Use: No Childhood Exposure to Second-Hand Smoke: No caffeine: Yes Dental Care, Regularly: Yes Physical Activity Frequency: 1-2 Times per Week Seatbelt Use: always Sunscreen Use: No Physical Exam Physical Exam: In general this is a well-developed well-nourished white male in no acute distress. HEENT exam is negative. Neck is supple with full carotid upstrokes. There are no carotid bruits. Jugular venous pressure is flat at 90. There is no thyromegaly. Cardiovascular exam reveals a regular rhythm with a normal S1 and S2. There is a 1/6 basal systolic ejection murmur. A prominent S4 is noted. No S3. Chest reveals a well-healed midline scar. Lungs note bibasilar rales. Abdomen is soft and nontender without bruits. Extremities reveal intact radial artery and posterior tibial pulses bilaterally. There is trace pretibial edema. Results & Data Vital Signs (Past 12 Hours) Vital Signs Temp Pulse Pulse Resp BP BP Pulse Ox 03/24/19 15:00 84 19 138/77 93 03/24/19 14:30 80 14 96 03/24/19 14:00 79 17 126/75 97 03/24/19 13:33 86 23 133/97 92 03/24/19 13:32 83 21 03/24/19 13:29 84 22 121/76 97 03/24/19 13:00 84 19 121/76 94 03/24/19 12:30 86 21 91 03/24/19 12:00 83 20 92 03/24/19 11:30 83 24 88 L 03/24/19 11:14 83 20 88 L 03/24/19 11:11 84 88 L 03/24/19 11:08 83 121/76 87 L 03/24/19 10:36 36.4 C L 89 18 116/73 95 Laboratory Results Laboratory Results - last 24 hr 03/24/19 03/24/19 03/24/19 11:05 11:05 11:05 WBC 9.44 RBC 4.21 L Hgb 12.9 L Hct 38.5 L MCV 91.4 MCH 30.6 MCHC 33.5 RDW Std Deviation 52.9 H RDW Coeff of Gely 15.8 H Plt Count 215 MPV 9.7 Immature Gran % (Auto) 0.1 Neut % (Auto) 70.1 Lymph % (Auto) 17.1 [place] % (Auto) 8.1 Eos % (Auto) 4.2 Baso % (Auto) 0.4 Immature Gran # (Auto) 0.01 Neut # (Auto) 6.62 H Lymph # (Auto) 1.61 [place] # (Auto) 0.76 H Eos # (Auto) 0.40 Baso # (Auto) 0.04 PT 11.6 INR 1.1 APTT 27.3 PTT Ratio 1.0 Sodium 138 Potassium 4.0 Chloride 106 Carbon Dioxide 26 Anion Gap 6.0 BUN 21 H Creatinine 1.59 H Est Cr Clr Drug Dosing 34.4 Est GFR ( Amer) 44.9 Est GFR (Non-Af Amer) 38.7 BUN/Creatinine Ratio 13.1 Glucose 83 Calcium 8.8 Magnesium Total Bilirubin 0.7 AST 25 ALT 19 Alkaline Phosphatase 90 Total Creatine Kinase 79 CK-MB (CK-2) 2.3 CK/CKMB % Calc 2.9 Troponin I 0.112 H* NT-Pro-B Natriuret Pep 29150 H Total Protein 7.5 Albumin 3.3 L Globulin 4.2 H Albumin/Globulin Ratio 0.8 L Lipase 110 03/24/19 11:05 WBC RBC Hgb Hct MCV MCH MCHC RDW Std Deviation RDW Coeff of Gely Plt Count MPV Immature Gran % (Auto) Neut % (Auto) Lymph % (Auto) [place] % (Auto) Eos % (Auto) Baso % (Auto) Immature Gran # (Auto) Neut # (Auto) Lymph # (Auto) [place] # (Auto) Eos # (Auto) Baso # (Auto) PT INR APTT PTT Ratio Sodium Potassium Chloride Carbon Dioxide Anion Gap BUN Creatinine Est Cr Clr Drug Dosing Est GFR ( Amer) Est GFR (Non-Af Amer) BUN/Creatinine Ratio Glucose Calcium Magnesium 2.2 Total Bilirubin AST ALT Alkaline Phosphatase Total Creatine Kinase CK-MB (CK-2) CK/CKMB % Calc Troponin I NT-Pro-B Natriuret Pep Total Protein Albumin Globulin Albumin/Globulin Ratio Lipase Diagnostic Findings EKG reveals normal sinus rhythm in an incomplete right bundle-branch block. Chest x-ray shows cardiomegaly and evidence of mild CHF. PG Care Time/CCT Total # of Minutes Spent Total Time Spent with Patient: Total time spent is greater than 50% in coordination of care (as documented) at patient's floor/unit and/or counseling patient: (1) CHF (congestive heart failure) Heart failure chronicity: unspecified Heart failure type: unspecified Qualified Code(s): I50.9 - Heart failure, unspecified
[2019-03-24] MEDS ORDERED: ALPRAZolam 0.25 MG TABLET PO PRN (17:09)
[2019-03-24] MEDS ORDERED: ASPIRIN 81 MG ECTAB PO SCH (17:09)
[2019-03-24] MEDS ORDERED: MAGNESIUM HYDROXIDE SUSP 30 ML UDC PO PRN (17:09)
[2019-03-24] MEDS ORDERED: ALUMINUM/MAGNESIUM SUSP 30 ML UDC PO PRN (17:09)
[2019-03-24] MEDS ORDERED: ONDANSETRON INJ 2 MG/ML 2 ML VIAL IV PRN (17:09)
[2019-03-24] MEDS ORDERED: POLYETHYLENE (MIRALAX) 17 GM PACK PO PRN (17:09)
[2019-03-24] MEDS ORDERED: ACETAMINOPHEN 325 MG TAB PO PRN (17:09)
[2019-03-24] MEDS ORDERED: METOPROLOL SUCC 25MG EXT REL TAB PO SCH (17:09)
[2019-03-24] MEDS ORDERED: NITROGLYCERIN SL 0.4 MG/TAB TAB SL PRN (17:09)
[2019-03-24] MEDS ORDERED: ZOLPIDEM TARTRATE 10 MG TAB PO SCH (21:00)
[2019-03-25] MEDS ORDERED: LEVOTHYROXINE SODIUM 112 MCG TABLET PO SCH (06:30)
[2019-03-25 06:59] LABS: Basophils # (auto) 0.06 K/uL (0-0.2); Basophils % (auto) 0.6 %; Eosinophils # (auto) 0.41 K/uL (0-0.5); Eosinophils % (auto) 3.9 %; Hematocrit (blood only) 40.7 % (42-52); Hemoglobin 13.1 g/dL (14.0-18.0); Immature Granulocytes # (auto) 0.03 K/uL (0.00-0.02); Immature Granulocytes % (auto) 0.3 %; Lymphocytes # (auto) 1.99 K/uL (1.2-3.4); Lymphocytes % (auto) 18.9 %; Mean Corpuscular Hemoglobin 29.8 pg (25-34); Mean Corpuscular Hgb Conc 32.2 g/dL (32-36); Mean Corpuscular Volume 92.5 fL (80-100); Mean Platelet Volume 9.9 fL (7.4-10.4); Monocytes # (auto) 0.97 K/uL (0.11-0.59); Monocytes % (auto) 9.2 %; Neutrophils # (auto) 7.08 K/uL (1.4-6.5); Neutrophils % (auto) 67.1 %; Platelet Count 218 K/uL (130-400); RDW Coefficient of Variation 15.5 % (11.5-14.5); RDW Standard Deviation 52.3 fL (36.4-46.3); White Blood Count 10.54 K/uL (4.8-10.8)
[2019-03-25 07:32] LABS: Calcium 8.9 mg/dl (8.5-10.1); Est GFR (Non-African American) 42.2; Potassium 3.6 mmol/L (3.5-5.1)
[2019-03-25 07:40] LABS: Troponin I 0.142 ng/ml (0-0.045)
--- NOTE | 2019-03-25 08:34 | Discharge Summary ---
Date of Service March 25, 2019 Admission HPI Per Admitting Provider Attending: Dr. Jesús Abrams This is a an 88-year-old male that presents with shortness of breath to the emergency department. He presented on 03/17/2019 and was found to have elevated troponin at 0.172 and a proBNP of 10,963. At that time he was unable to stay because of his being ill and he is a sole provider. He was referred for outpatient echocardiogram. That was completed this morning and the patient was referred immediately to the emergency department for abnormal findings and an elevated troponin of 0.112. Patient's proBNP this morning is 10,000. The patient reports that he is never had any pulmonary issues and is not on supplemental oxygen at home. Aside from some shortness of breath he has no other acute symptoms. He denies any significant edema of the lower extremities. He has no chest pain or tightness. He denies any back pain or pain radiating into the neck shoulder or arm. He has no recent illness and denies fever or chills. He has no constitutional complaints. The patient has a past medical history including myocardial infarction with three-vessel CABG in 1979, [id number] tobacco abuse history (quit smoking 40 years ago), TIA, CHF, chronically elevated troponin since August 2018, BPH, hypothyroidism, hyperlipidemia, idiopathic polyneuropathy, hypertension, history of migraines, disequilibrium. 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 Principal Diagnosis Acute systolic heart failure, new diagnosis Discharge Exam Constitutional WD/WN, vitals as above Eyes PERRL, conjunctivae normal, anicteric sclerae ENMT external ear and nose normal, oropharynx normal Neck trachea midline, no thyromegaly Respiratory normal respiratory effort, lungs clear to auscultation Cardiovascular Rate/Rhythm: regular rate and regular rhythm Heart Sounds: normal S1 and normal S2; no murmur Vessels: no JVD Extremities: normal capillary refill and + edema (trace bilateral legs) Gastrointestinal (Abdomen) normal bowel sounds, soft, nontender, no hepatosplenomegaly Musculoskeletal no cyanosis or clubbing, extremities motor strength 5/5 Skin no rashes, warm and dry Neurologic patellar DTR's 2+ bilat, sensation intact and PERRL, EOMI, accommodation nl, no face palsy, no dysarthria Psychiatric A+Ox3, euthymic affect Lymphatic no cervical or axillary lymphadenopathy Discharge Data Allergies Allergy/AdvReac Type Severity Reaction Status Date / Time atorvastatin AdvReac U MYALGIA Verified 03/24/19 13:02 Consultations 03/24/19 11:52 ED Decision to Admit Stat 03/24/19 17:09 Consult Cardiology Routine Consult Case Management - Discharge Planning Routine Hospital Course (1) Acute systolic heart failure: new finding of EF of 30% responding well to Lasix 40mg PO daily, will continue started on Toprol 12.5mg daily, may be able to titrate up in outpatient setting BP low normal so will not start Lisinopril at this time, can consider in clinic CHF instructions provided and went over them in detail with the patient will follow up with the heart failure clinic and cardiology (2) Recent myocardial infarction: most likely had a small AL two weeks ago has bypass grafts that are almost 40 years old continue on aspirin and Plavix no further work up at this time per cardiology patient does not have any active chest pain (3) Exertional dyspnea: due to systolic heart failure should improve with better volume control with Lasix after exertion is saturations on room air were 88-89% so he was not desaturating (4) Hyperlipidemia: continue Statin (5) Neuropathy: (6) TIA (transient ischemic attack): continue aspirin and Plavix (7) Hypothyroidism: continue Synthroid Total Time Total Time Spent Total Time Spent (In Minutes): 40 minutes Total Time Includes: Examination of the Patient, Discharge Planning, Medication Reconciliation and Communication With Other Providers (Dr. García, Sophie PARRA) Discharge Plan Discharge Items Patient Disposition: Home - Self-Care Reason For Visit: ABNORMAL ECHOCARDIOGRAM,ELEVATED TROPONIN Discharge Diagnosis: New onset systolic heart failure Condition on Discharge: Good Goals: management of heart failure, keep volume off, see below for instructions Activity: Resume your previous activity Lifting: None Bathing: No limitations Exercise/Sports: Gradually increase as tolerated Driving/Machine Use: No limitations Non-emergency contact: Primary Care Provider and [employer] Product Consultant Call non-emergency contact if: you have any medication questions and your s ymptoms worsen Follow-up/Referrals: Ermias Nur MD [Primary Care Provider] - Diet: Heart Healthy Fluids: 2000ml (8 cups) Addtl Attending Provider Instructions: Medications: - LASIX: 40mg daily to volume control - TOPROL (metoprolol): 12.5mg daily to control heart rate and blood pressure Acute systolic heart failure, recent AL will start on Toprol and increase Lasix to 40mg ortiz in managing heart failure is volume control you need to follow a 2000mL a day fluid restriction and you need to follow a sodium restriction of 2gm a day WEIGH yourself every morning, develop a routine, after you urinate and before breakfast, write down the weight if your weight goes up by 2-3 pounds then you need to contact cardiology, Dr. García, immediately for instructions you will need to follow up with Sophie Bishop in the heart failure clinic in one week, you will need to follow up with Dr. García in a few weeks, [phone] Nur in one week Call 911 and go to the Emergency Room if: * You have tightness or pain in your chest that does not go away with rest or Nitroglycerin * You are very short of breath even with rest Call your doctor if any of the following symptoms or problems start or get worse: * Shortness of breath or difficulty breathing * Wake up at night short of breath * Chest pain * Cough * Swelling of your hands, fee, or legs * More fatigued or tired with your normal activity * Palpitations - sudden fast heart beats WEIGHT * Weigh yourself every morning after using the bathroom. * Use the same scale. * Wear the same amount of clothing. * Write your weight down on your chart. * Call your doctor if you gain more than 2-3 pounds in 1-2 days. MEDICATIONS * Use this discharge instruction sheet for instructions. * Take your medications at the time your doctor ordered. * Do not skip a dose of your medicines. * If you miss a dose of medicine, take as soon as possible, but DO NOT DOUBLE A DOSE. * Read your medicine information when you get home. * Know all of the side effects of your medicine. * Call your doctor's office if you have any side effects. * Be sure all of your doctors know what medicine and herbs you take (including cold, flu, and herbal medicine). * Pain Medicine: If you do not get relief from your pain, please call your doctor for help. Take the following with you to your follow-up doctor appointments: * Weight Chart * Medication List * List of questions Do not drink excessive alcohol, beer or wine. Pending Studies at Discharge: No Stand-Alone Forms: My [facility] Medications and DC Order Prescriptions: New furosemide 40 mg Tablet 40 mg PO QAM 30 Days Qty: 30 RF: 1 metoprolol succinate 25 mg Tablet Extended Release 24 Hr 12.5 mg PO QAM 30 Days Qty: 15 RF: 1 Continued alprazolam 0.25 mg tablet 0.25 mg PO DAILY PRN (Reason: anxiety) Qty: 45 RF: 0 zolpidem 12.5 mg tablet,ext release multiphase 12.5 mg PO QPM Qty: 30 RF: 0 nitroglycerin 0.4 mg tablet, sublingual 0.4 mg SL Q5M PRN (Reason: chest pain) Qty: 25 RF: 2 gabapentin 100 mg capsule See Patient Comments mg PO .COMPLEX PRN (Reason: Pain) RF: 0 clopidogrel 75 mg tablet 75 mg PO QAM Qty: 90 RF: 0 esomeprazole magnesium 40 mg capsule,delayed release(DR/EC) 40 mg PO QAM Qty: 90 RF: 0 finasteride 5 mg tablet 5 mg PO QAM Qty: 90 RF: 0 aspirin 81 mg tablet,delayed release (DR/EC) 81 mg PO MONWEDFRI RF: 0 simvastatin 40 mg tablet 40 mg PO QAM Qty: 90 RF: 0 ranitidine HCl 150 mg capsule 300 mg PO QPM PRN (Reason: Gastric Reflux) Qty: 90 RF: 0 levothyroxine 112 mcg tablet 112 mcg PO QAM RF: 0 Discontinued furosemide [Lasix] 20 mg tablet 20 mg PO QAM RF: 0 Discharge Orders: Discharge Order (Routine); Ordered 03/25/19 Ordered By: Jesús Abrams Admission Data Admit Date/Time: 03/24/19 13:47 Attending Provider: Jesús Abrams Admit Provider: Jesús Abrams Primary Care Provider: Ermias Nur Other Providers: Jesús Abrams ; Marck García
[2019-03-25] MEDS ORDERED: METOPROLOL SUCC 25MG EXT REL TAB PO SCH (09:00)
[2019-03-25] MEDS ORDERED: PANTOprazole 40 MG TAB PO SCH (09:00)
[2019-03-25] MEDS ORDERED: FINASTERIDE 5 MG TAB PO SCH (09:00)
[2019-03-25] MEDS ORDERED: SIMVASTATIN 40 MG TAB PO SCH (09:00)
[2019-03-25] MEDS ORDERED: FUROSEMIDE 40 MG TAB PO SCH (09:00)
--- NOTE | 2019-03-25 11:08 | Cardiology Progress Note ---
Date of Service March 25, 2019 Assessment & Plan (1) CHF (congestive heart failure): The patient likely suffered an ME approximately 3 weeks ago with a resultant ischemic cardiomyopathy and acute systolic CHF. The patient has done well with intravenous diuretics. Agree with converting him to 40 mg p.o. daily at time of discharge. Agree with 12.5 mg of metoprolol succinate. May start an ACEI or an ARB as an outpatient depending on his renal function. As before, we will proceed with conservative measures rather than a cardiac catheterization. (2) Elevated troponin: As above, troponins are mildly elevated. Suspect he had a myocardial infa rction approximately 3 weeks ago. (3) Abnormal echocardiogram: Echocardiogram in our office yesterday noted in inferolateral wall motion abnormality and an ejection fraction of 30-35%. (4) Coronary arteriosclerosis: The patient had a CABG x3 performed in 1979. He has not experienced any exertional angina pectoris since that time. Subjective The patient is resting comfortably in bedside chair without complaints of chest pain or dyspnea. I ambulated the patient through the hallways this morning. He had no complaints of chest discomfort nor dyspnea. He is anxious for hospital discharge. Physical Exam Physical Exam: In general this is a well-developed well-nourished white male in no acute distress. HEENT exam is negative. Neck is supple with full carotid upstrokes. There are no carotid bruits. Jugular venous pressure is flat at 90. There is no thyromegaly. Cardiovascular exam reveals a regular rhythm with a normal S1 and S2. There is a 1/6 basal systolic ejection murmur. A prominent S4 is noted. No S3. Chest reveals a well-healed midline scar. Lungs are clear without rales, rhonchi, wheezes. Abdomen is soft and nontender without bruits. Extremities reveal intact radial artery and posterior tibial pulses bilaterally. There is trace pretibial edema. Results & Data Vital Signs (Past 12 Hours) Vital Signs Temp Pulse Pulse Resp BP BP Pulse Ox 03/25/19 09:04 36.7 C 80 18 117/68 97/59 L 92 03/25/19 07:43 36.7 C 80 18 117/68 92 03/25/19 07:27 85 03/25/19 03:54 36.7 C 78 16 97/59 L 94 03/25/19 00:00 85 03/24/19 23:26 36.6 C 82 16 112/70 97 Laboratory Results CBC notes hemoglobin of 13.1, hematocrit 40.7, white count 10.54, platelet count of [id number]. Electrolytes note the sodium of 140, potassium 3.6, chloride 104, bicarb 27, BUN 21, creatinine 1.48, and glucose is 69. Troponin I level is mildly elevated 0.142. 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 EKG notes normal sinus rhythm and nonspecific interventricular conduction delay. There is nonspecific ST T-wave abnormality. PG Care Time/CCT Total # of Minutes Spent Total Time Spent with Patient: Total time spent is greater than 50% in coordination of care (as documented) at patient's floor/unit and/or counseling patient: (1) CHF (congestive heart failure) Heart failure chronicity: unspecified Heart failure type: unspecified Qualified Code(s): I50.9 - Heart failure, unspecified
== END 2019-03-25 09:41 | disposition home or self-care (01) | DRG 282 ==
LOC: ED 10:25 → 2S 13:47

== ENCOUNTER 2020-04-08 04:49 | Inpatient (IN) ==
[2020-04-08 05:16] LABS: Basophils # (auto) 0.03 K/uL (0-0.2); Basophils % (auto) 0.3 %; Eosinophils # (auto) 0.41 K/uL (0-0.5); Eosinophils % (auto) 4.4 %; Hematocrit (blood only) 40.4 % (42-52); Hemoglobin 12.9 g/dL (14.0-18.0); Immature Granulocytes # (auto) 0.03 K/uL (0.00-0.02); Immature Granulocytes % (auto) 0.3 %; Lymphocytes # (auto) 1.34 K/uL (1.2-3.4); Lymphocytes % (auto) 14.4 %; Mean Corpuscular Hgb Conc 31.9 g/dL (32-36); Mean Platelet Volume 10.4 fL (7.4-10.4); Monocytes # (auto) 0.93 K/uL (0.11-0.59); Neutrophils # (auto) 6.55 K/uL (1.4-6.5); Neutrophils % (auto) 70.6 %; Platelet Count 207 K/uL (130-400); RDW Coefficient of Variation 17.2 % (11.5-14.5); White Blood Count 9.29 K/uL (4.8-10.8)
--- NOTE | 2020-04-08 05:30 | Emergency Department Note ---
Impression & Plan Hypoxia, CHF (congestive heart failure) ED Provider Note NAME: CORWIN WALDEN AGE: 89 SEX: M ARRIVES VIA: Ambulance INFORMANT: Patient ED PROVIDER(S): Dona Purvis DO CHIEF COMPLAINT: Fall from bed PLAN: Disposition: The patient will be admitted to the [facility] Condition: Stable MEDICAL DECISION MAKING: This is an 89-year-old male who fell from bed at home. The patient's called EMS. Upon their arrival, the patient's O2 saturation was only 82%. The patient has a history of CHF. Supplemental oxygen of 6 L brought the patient's O2 saturation up to 96%. Patient explains that he takes a half of Lasix pill a day. Chest x-ray shows significant evidence of congestive heart failure. Without supplemental oxygen, the patient is hypoxic. Triage Nursing notes reviewed and agree them. Additional history obtained from EMS Prior medical records reviewed Vital Signs: reviewed and remarkable for hypoxia, tachypnea and hypothermia. Differential diagnosis: Pneumonia, CHF, pneumothorax ER treatment provided: IV Lasix, supplemental oxygen Diagnostics interpreted by me: ECG: Normal sinus rhythm at [address] segment elevation or signs of ischemia. There is no ectopy. This EKG is unchanged from March 25 of this year. Cardiac Monitoring: Normal sinus rhythm at a rate of 90 Laboratory studies: See below Imaging studies: As per my interpretation Chest x-ray: Moderate congestive heart failure HPI: 89/M arrives for evaluation of fall from bed. The patient was at home when he fell from his bed. The patient appeared to be short of breath. His called EMS. Upon their arrival, the patient's O2 saturation was only 82%. ROS: See above HPI for pertinent positives & negatives. A total of 10 systems reviewed and were otherwise negative. PAST MEDICAL HISTORY:See Below PAST SURGICAL HISTORY:See Below FAMILY HISTORY:See Below SOCIAL HISTORY:See Below HOME MEDICATIONS:See list ALLERGIES: See list VITALS:See Below PHYSICAL EXAMINATION: HEENT: Head - normocephalic and atraumatic Pupils are equal, round, and reactive to light. Extraocular eye muscles are intact, and sclera are anicteric. Nose - moist nasal mucosa without discharge. Mouth - moist buccal mucosa. Oropharynx is nonerythematous and there is no tonsillar exudate or edema noted. Neck: Supple; no JVD or cervical lymphadenopathy Heart: Regular rate and rhythm. There is a normal S1 and S2 with no murmurs, clicks, or gallops appreciated. Lungs: Manage breath sounds in all lung duron with rales at both bases. Abdomen: Soft, completely nontender, nondistended, with good bowel sounds. There are no palpable pulsatile masses or hepatosplenomegaly. There is no gu arding, rigidity, or rebound noted. Extremities: Skin tear noted to the left anterior tib-fib region of the lower extremity.; 2+ pitting edema to both lower extremities Skin: Pale, warm and dry with good turgor and no rashes. ED COURSE: 509: Patient was evaluated in room A4. A complete history and physical was performed. Laboratory studies were drawn as above. The patient was hypoxic upon arrival here in the emergency department. He had to be maintained on supplemental oxygen to have O2 saturations greater than 90. An order was placed for continuous cardiac monitoring. The patient was in a normal sinus rhythm at a rate of 90. 0620: I reevaluated the patient at this time. His O2 saturations remained stable. I reviewed some of the results of the laboratory tests that had come back. The patient was given 40 mg of IV Lasix. 0650: I reevaluated the patient again at this time. He has started to diurese. I have personally spent greater than 30 minutes of critical care time in the direct management of this patient. This includes bedside care, interpretation of diagnostic studies, and testing, discussion with consultants, patient, and family members, and other required patient management activities. This 30 minutes is in excess of all separately billable procedures. Dona Purvis DO Past Med/Surg History Medical History (Updated 04/08/20 @ 06:58 by Dona Purvis DO) Acute sinusitis Acute systolic heart failure Angina pectoris, unspecified CAD (coronary artery disease) CHF (congestive heart failure) CHF (congestive heart failure) Chronic anemia Chronic ischemic heart disease Disequilibrium DVT prophylaxis Early satiety Elevated BP without diagnosis of hypertension Elevated troponin Headache History of actinic keratosis Hyperlipidemia Hypothyroidism Hypoxia Recent myocardial infarction Surgical History History of appendectomy History of back surgery fusion History of coronary artery bypass graft x 3 S/P CABG x 3 Family History Mother Stroke syndrome Diabetes Unknown Acquired arteriovenous malformation of colon with hemorrhage Father Prostate cancer Social History Smoking Status: Former smoker Age Quit Using Tobacco: 48; packs per day: 1; Number of Years Since Quit: 40; Second Hand Exposure: No; Hx Alcohol Use: No Hx Substance Use: No Preferred Language: Lao Communication Ability: Effective Visual Impairment: Limited Hearing Ability: Normal Rabbit Fancier Required: No Beliefs That Will Affect Care: None marital status: Current Living Situation: Spouse Current Living Situation Comment: 1 cat current occupational status: retired Feels Safe at Home: Yes Childhood Exposure to Second-Hand Smoke: No caffeine: Yes Dental Care, Regularly: Yes Physical Activity Frequency: Does not Exercise Seatbelt Use: always Sunscreen Use: No Assistive Devices: Denture - Upper and Glasses Allergies Allergies Allergy/AdvReac Type Severity Reaction Status Date / Time atorvastatin AdvReac Intermediate MYALGIA Verified 04/08/20 05:53 Home Meds Home Medications Medication Instructions Recorded Confirmed finasteride 5 mg tablet 5 mg PO DAILY 03/04/20 04/08/20 furosemide 40 mg tablet 20 mg PO DAILY tab 03/31/20 04/08/20 Previous Rx's Medication Instructions Recorded nitroglycerin 0.4 mg sublingual 0.4 mg SL Q5M PRN #25 tab 03/10/19 tablet clopidogrel 75 mg tablet 75 mg PO DAILY #90 tab 06/18/19 simvastatin 40 mg tablet 40 mg PO QAM #90 tab 09/01/19 esomeprazole magnesium 40 mg 40 mg PO QAM #90 cap 10/13/19 capsule,delayed release metoprolol succinate 25 mg 12.5 mg PO QAM #90 tab 02/10/20 tablet,extended release 24 hr gabapentin 100 mg capsule 200 mg PO QPM PRN #60 cap 03/04/20 levothyroxine 112 mcg tablet 112 mcg PO DAILY #90 tab 03/08/20 alprazolam 0.25 mg tablet 0.25 mg PO DAILY PRN #45 tab 04/07/20 zolpidem 12.5 mg tablet,extended 12.5 mg PO QPM #30 tab 04/07/20 release,multiphase Results & Data (ED) Vital Signs Vital Signs - 24 hr 04/08/20 05:07 04/08/20 05:10 04/08/20 05:20 Temperature 36.1 C L Temperature Source Rectal Pulse Rate 93 H 88 Pulse Rate from SpO2 Sensor 93 H Respiratory Rate 29 H 26 H Respiratory Effort / Characteristics Spontaneous Respiratory Depth Normal Blood Pressure 115/83 113/76 Blood Pressure Mean 92 88 Pulse Oximetry 91 86 L 96 Oxygen Delivery Method Nasal Cannula Room Air Nasal Cannula Oxygen Flow Rate 2 2 Sepsis New/Unexplained Change in Mental Status N/A Sepsis Action Taken by Nursing No Action Required 04/08/20 05:22 04/08/20 05:55 04/08/20 06:16 Temperature Temperature Source Pulse Rate 99 H 94 H Pulse Rate from SpO2 Sensor 94 H Respiratory Rate 24 17 Respiratory Effort / Characteristics Spontaneous Respiratory Depth Blood Pressure 128/79 Blood Pressure Mean 97 Pulse Oximetry 94 93 Oxygen Delivery Method Nasal Cannula Nasal Cannula Oxygen Flow Rate 2 2 Sepsis New/Unexplained Change in Mental Status Sepsis Action Taken by Nursing Laboratory Data Result diagrams: 04/08/20 04:40 04/08/20 04:40 Lab Results 04/08/20 04/08/20 Range/Units 04:40 04:40 WBC 9.29 (4.8-10.8) K/uL RBC 4.30 L (4.7-6.1) M/uL Hgb 12.9 L (14.0-18.0) g/dL Hct 40.4 L (42-52) % MCV 94.0 (80-100) fL MCH 30.0 (25-34) pg MCHC 31.9 L (32-36) g/dL RDW Std Deviation 58.0 H (36.4-46.3) fL RDW Coeff of Gely 17.2 H (11.5-14.5) % Plt Count 207 (130-400) K/uL MPV 10.4 (7.4-10.4) fL Immature Gran % (Auto) 0.3 % Neut % (Auto) 70.6 % Lymph % (Auto) 14.4 % Tift % (Auto) 10.0 % Eos % (Auto) 4.4 % Baso % (Auto) 0.3 % Neut # (Auto) 6.55 H (1.4-6.5) K/uL Lymph # (Auto) 1.34 (1.2-3.4) K/uL Tift # (Auto) 0.93 H (0.11-0.59) K/uL Eos # (Auto) 0.41 (0-0.5) K/uL Baso # (Auto) 0.03 (0-0.2) K/uL Immature Gran # (Auto) 0.03 H (0.00-0.02) K/uL Sodium 142 (136-145) mmol/L Potassium 3.9 (3.5-5.1) mmol/L Chloride 108 H (98-107) mmol/L Carbon Dioxide 28 (21-32) mmol/L Anion Gap 6.0 (3-11) BUN 32 H (7-18) mg/dl Creatinine 1.72 H (0.6-1.4) mg/dl Est Cr Clr Drug Dosing 31.2 ml/min Est GFR ( Amer) 40.5 Est GFR (Non-Af Amer) 35.0 BUN/Creatinine Ratio 18.5 (10-20) Glucose 89 (70-99) mg/dl Calcium 8.9 (8.5-10.1) mg/dl Troponin I 0.039 (0-0.045) ng/ml NT-Pro-B Natriuret Pep 85615 H (0-1800) pg/ml Administered Medications Discontinued Medications Furosemide (Furosemide 40 Mg/4 Ml Vial) 40 mg IV NOW STA Stop: 04/08/20 06:00 Last Admin: 04/08/20 06:07 Dose: 40 mg Documented by: [id number] Discharge Plan Visit Data Chief Complaint: Shortness of Breath/Dyspnea Stated Complaint: sob ED Provider: Dona Purvis Discharge Problem: Hypoxia, CHF (congestive heart failure) Forms Stand Alone Forms: My [facility] Prescriptions Prescriptions: No Action clopidogrel 75 mg tablet 75 mg PO DAILY Qty: 90 RF: 3 simvastatin 40 mg tablet 40 mg PO QAM Qty: 90 RF: 3 esomeprazole magnesium 40 mg capsule,delayed release(DR/EC) 40 mg PO QAM Qty: 90 RF: 3 levothyroxine 112 mcg tablet 112 mcg PO DAILY Qty: 90 RF: 1 zolpidem 12.5 mg tablet,ext release multiphase 12.5 mg PO QPM Qty: 30 RF: 0 alprazolam 0.25 mg tablet 0.25 mg PO DAILY PRN (Reason: anxiety) Qty: 45 RF: 0 nitroglycerin 0.4 mg tablet, sublingual 0.4 mg SL Q5M PRN (Reason: chest pain) Qty: 25 RF: 2 metoprolol succinate 25 mg tablet extended release 24 hr 12.5 mg PO QAM Qty: 90 RF: 3 furosemide [Lasix] 40 mg tablet 20 mg PO DAILY RF: 0 finasteride 5 mg tablet 5 mg PO DAILY RF: 0 gabapentin 100 mg capsule 200 mg PO QPM PRN (Reason: Pain) Qty: 60 RF: 5 Discharge Problem: CHF (congestive heart failure) Qualifiers: Heart failure type: unspecified Heart failure chronicity: acute Qualified Code(s): I50.9 - Heart failure, unspecified
[2020-04-08 05:34] LABS: BUN Creatinine Ratio 18.5 (10-20); Calcium 8.9 mg/dl (8.5-10.1); Creatinine Clr Calc Pharmacy 31.2 ml/min; Est GFR (African American) 40.5; Potassium 3.9 mmol/L (3.5-5.1)
[2020-04-08 05:39] LABS: Troponin I 0.039 ng/ml (0-0.045)
[2020-04-08] MEDS ORDERED: FUROSEMIDE 40 MG/4 ML VIAL IV STA (05:59)
--- NOTE | 2020-04-08 06:40 | XRay Report ---
XR chest 1V portable HISTORY: 89 years-old Male resp distress acute respiratory distress COMPARISON: Chest radiographs 02/17/2020 TECHNIQUE: Portable AP view of the chest FINDINGS: Mild cardiomegaly with prior median sternotomy. Calcified plaque of the thoracic aortic arch. Left alejandre bclavian pacer/AICD. Progressively worsened interstitial coarsening with pulmonary vascular congestio n and mild bibasilar densities. Trace pleural effusions. Degenerative changes of the shoulders and sp ine. IMPRESSION: 1. Cardiomegaly with pulmonary vascular congestion on a background of chronic interstitial coarsening . 2. Mild bibasilar densities suggest atelectasis or pneumonitis. 3. Trace pleural effusions. ACT 112: Negative or not required by law. The above report was generated using voice recognition software. It may contain grammatical, syntax o r spelling errors. Electronically signed by: Jason Wyman M.D. 04/08/2020 6:39 AM
--- NOTE | 2020-04-08 08:08 | History & Physical Report ---
Date of Service April 08, 2020 Assessment & Plan (1) CHF exacerbation: Patient presents with shortness of breath and a proBNP of 28,526 Typically takes oral furosemide at home Reports compliance with home medications We will start the patient on IV furosemide Requested strict ins and outs Daily standing weights No indication for further echocardiogram [place] [facility] We will coordinate with the CHF clinic with Sophie Bishop PA-C (2) Hypoxia: Most likely exacerbation from CHF Chest x-ray with pulmonary edema Titrate supplemental O2 off No history of pulmonary disease Patient does have a past smoking history and quit smoking 8 years ago Follow expectantly (3) CKD (chronic kidney disease), stage III: Patient with baseline creatinine of 1.5 Presents with creatinine of 1.72 Follow serial labs Requires additional amounts of furosemide for hypoxia with CHF exacerbation (4) Chronic insomnia: Will continue zolpidem while inpatient (5) CAD (coronary artery disease): Ischemic cardiomyopathy as demonstrated by echocardiogram Continue metoprolol succinate, esomeprazole simvastatin, aspirin, clopidogrel Admit to telemetry bed No indication for cardiology consult at this time (6) Ischemic cardiomyopathy: Reduced ejection fraction on most recent echocardiogram Single lead pacemaker is in place Continue above treatment for CAD Slight bump in troponin of 0.039 This is most likely ischemic demand from episode of hypoxia overnight Check follow-up troponin No EKG changes (7) Idiopathic polyneuropathy: No history of diabetes mellitus Continue gabapentin 200 mg p.o. qpm (8) Hypothyroidism: Continue levothyroxine (9) Hyperlipidemia: Continue simvastatin (10) Chronic anemia: Hemoglobin currently stable at 12.9 On dual antiplatelet agents but no anticoagulation Follow serial labs (11) Hypotension: Patient reports chronic hypotension due to cardiac medications for CAD Currently blood pressure is 119/89 Admit to tin flopper vitals per protocol especially in light of increased diuretics (12) DVT prophylaxis: Continue clopidogrel and aspirin MILAN hose and SCDs Ambulate as tolerated Please refer to Dr. Marx's addendum for further recommendations and changes History of Present Illness Primary Care Provider: Ermias Nur MD Attending: Dr. Marx This is an 89-year-old male. He has a past medical history including CAD, pacemaker placement, congestive heart failure, hypothyroidism, hyperlipidemia, neuropathy, BPH hypertension. The patient was in his usual state of health and feeling well yesterday. He went to bed last night without any complication. He states that he fell out of bed overnight. He is unaware of how he fell or why he fell. He did not have any pain and does not think that he hit his head. He awoke his due to progressive shortness of breath which started 2 or 3 days ago. He was hesitant to get it checked as his is a brittle diabetic and he manages her diabetes. He lives alone with her and they have been for greater than 60 years. He denies any fever, chills, sweats, rigors. He has no nausea or vomiting. He had no chest pain or tightness. He denies any dyspnea with exertion. He has no recent diarrhea. Generally he states that he has been stable. He is a prior smoker and states that he quit smoking 8 years ago. He does not use ethanol. He states he is compliant with all of his medications. Pacemaker placement was 02/17/2020. The patient has no other acute complaints. Allergies Allergy/AdvReac Type Severity Reaction Status Date / Time atorvastatin AdvReac Intermediate MYALGIA Verified 04/08/20 05:53 Home Medications Home Medications Medication Instructions Recorded Confirmed Type nitroglycerin 0.4 mg sublingual 0.4 mg SL Q5M PRN #25 tab 03/10/19 04/08/20 Rx tablet clopidogrel 75 mg tablet 75 mg PO DAILY #90 tab 06/18/19 04/08/20 Rx simvastatin 40 mg tablet 40 mg PO QAM #90 tab 09/01/19 04/08/20 Rx esomeprazole magnesium 40 mg 40 mg PO QAM #90 cap 10/13/19 04/08/20 Rx capsule,delayed release metoprolol succinate 25 mg 12.5 mg PO QAM #90 tab 02/10/20 04/08/20 Rx tablet,extended release 24 hr finasteride 5 mg tablet 5 mg PO DAILY 03/04/20 04/08/20 History gabapentin 100 mg capsule 200 mg PO QPM PRN #60 cap 03/04/20 04/08/20 Rx levothyroxine 112 mcg tablet 112 mcg PO DAILY #90 tab 03/08/20 04/08/20 Rx furosemide 40 mg tablet 20 mg PO DAILY tab 03/31/20 04/08/20 History alprazolam 0.25 mg tablet 0.25 mg PO DAILY PRN #45 tab 04/07/20 04/08/20 Rx zolpidem 12.5 mg tablet,extended 12.5 mg PO QPM #30 tab 04/07/20 04/08/20 Rx release,multiphase Past Med/Surg History Medical History (Updated 04/08/20 @ 08:37 by Nabor Brown PA-C) Acute sinusitis Acute systolic heart failure Angina pectoris, unspecified CAD (coronary artery disease) CHF (congestive heart failure) CHF (congestive heart failure) Chronic anemia Chronic ischemic heart disease Disequilibrium DVT prophylaxis Early satiety Elevated BP without diagnosis of hypertension Elevated troponin Headache History of actinic keratosis Hyperlipidemia Hypothyroidism Hypoxia Recent myocardial infarction Surgical History (Updated 04/08/20 @ 08:06 by Nabor Brown PA-C) History of appendectomy History of back surgery fusion History of coronary artery bypass graft x 3 S/P CABG x 3 S/P placement of cardiac pacemaker Med[employer] Visia AF MRI VR [id number] Chamber AICD 02/17/2020 Serial number: [id number] Family History Mother Stroke syndrome Diabetes Unknown Acquired arteriovenous malformation of colon with hemorrhage Father Prostate cancer Social History (Updated 04/08/20 @ 08:06 by Nabor Brown PA-C) Smoking Status: Former smoker Age Quit Using Tobacco: 81; packs per day: 1; Years Smoked: 20; Number of Years Since Quit: 8; Second Hand Exposure: No; Hx Alcohol Use: No Hx Substance Use: No Preferred Language: Arabic Communication Ability: Effective Visual Impairment: Limited Hearing Ability: Normal Power Driven Brush Maker Required: No Beliefs That Will Affect Care: None marital status: Current Living Situation: Spouse Current Living Situation Comment: 1 cat current occupational status: retired Other Information That Helps Us Care for You: No Feels Safe at Home: Yes Safety Concerns: Feels Safe At This Time Childhood Exposure to Second-Hand Smoke: No caffeine: Yes Dental Care, Regularly: Yes Physical Activity Frequency: Does not Exercise Seatbelt Use: always Sunscreen Use: No Assistive Devices: Denture - Upper, Denture - Lower and Walker Review of Systems Review of Systems: All systems reviewed & are unremarkable except as noted in HPI & below Physical Exam Physical Exam: GENERAL : No acute distress EYES: No icterus, gaze conjugate NOSE: No evidence of epistaxis MOUTH: No lesions or candidiasis NECK: Supple LUNGS: Coarse crackles bilaterally. Good inspiratory effort. No bronchospasm. HEART: Regular, rate controlled ABDOMEN: Soft, NT, ND, BS Present EXTREMITIES: Bilateral LE edema, pedal pulses intact and equal bilaterally NEURO: A&OX3. No focal deficits appreciated for cranial nerves II through XII. Results & Data Results & Data ([facility]) Vital Signs (Past 12 Hours) Vital Signs Temp Pulse Resp BP Pulse Ox 04/08/20 06:16 94 H 17 128/79 93 04/08/20 05:55 99 H 24 94 04/08/20 05:20 96 04/08/20 05:10 36.1 C L 88 26 H 113/76 86 L 04/08/20 05:07 93 H 29 H 115/83 91 Laboratory Results 04/08/20 04:40 04/08/20 04:40 04/08/20 04:40 Troponin I 0.039 Laboratory Tests 04/08/20 04:40 NT-Pro-B Natriuret Pep 10514 H Diagnostic Findings XR chest 1V portable HISTORY: 89 years-old Male resp distress acute respiratory distress COMPARISON: Chest radiographs 02/17/2020 TECHNIQUE: Portable AP view of the chest FINDINGS: Mild cardiomegaly with prior median sternotomy. Calcified plaque of the thoracic aortic arch. Left subclavian pacer/AICD. Progressively worsened interstitial coarsening with pulmonary vascular congestion and mild bibasilar densities. Trace pleural effusions. Degenerative changes of the shoulders and spine. IMPRESSION: 1. Cardiomegaly with pulmonary vascular congestion on a background of chronic i nterstitial coarsening. 2. Mild bibasilar densities suggest atelectasis or pneumonitis. 3. Trace pleural effusions. Electronically signed by: Jason Wyman M.D. 04/08/2020 6:39 AM Code Status & VTE Plan Code Status Level V: DNR/DNI VTE Prophylaxis Plan VTE Prophylaxis will be ordered: Yes Supervising Physician Co-Signing Physician Notes I personally examined the patient and verified all ortiz points of history and exam, discussed case, and agree with decision making with Xochilt Brown PAC feeling better by the time i see him, not really short of breath. still on 2L though and when nursing tried to wean he dropped into 80's even while still on 1L. notes that he tries to sodium restrict as directed by dr garcía but then on diet recall dinners frequently are things like [employer] or [facility] vitals noted nad heent nc at mmm breathing unlabored but still w faint base rales no accessory muscles good effort skin no rashes no pallor or icterus. acute on chronic systolic chf (acute hfref) - likely from sodium mediated fluid retention. diurese, supportive care. with low EF will want to consider trial of entresto - just will have to be quite cautious/low dosing/titrate slowly since he appears to also have a degree of hypotension at times otherwise as above PG Care Time/CCT Total # of Minutes Spent Total Time Spent with Patient: Total time spent is greater than 50% in coordination of care (as documented) at patient's floor/unit and/or counseling patient: 45 minutes Coding Level of Care Code 16053 Initial Inpt Care Lvl 3 Diagnoses CHF exacerbation I50.9 Hypoxia R09.02 CKD (chronic kidney disease), stage III N18.3 Chronic insomnia F51.04 CAD (coronary artery disease) I25.10 Ischemic cardiomyopathy I25.5 Idiopathic polyneuropathy G60.9 Hypothyroidism E03.9 Hypothyroidism type: acquired Hyperlipidemia E78.5 Chronic anemia D64.9 Hypotension I95.9 DVT prophylaxis Z29.9 Time Spent (min) 45 (1) Hypothyroidism Hypothyroidism type: acquired Qualified Code(s): E03.9 - Hypothyroidism, unspecified
[2020-04-08] MEDS ORDERED: GABAPENTIN 100 MG CAP PO PRN (09:21)
[2020-04-08] MEDS ORDERED: ONDANSETRON INJ 2 MG/ML 2 ML VIAL IV PRN (09:21)
[2020-04-08] MEDS ORDERED: ALUMINUM/MAGNESIUM SUSP 30 ML UDC PO PRN (09:21)
[2020-04-08] MEDS ORDERED: MAGNESIUM HYDROXIDE SUSP 30 ML UDC PO PRN (09:21)
[2020-04-08] MEDS ORDERED: NITROGLYCERIN SL 0.4 MG/TAB TAB SL PRN (09:21)
[2020-04-08] MEDS ORDERED: ACETAMINOPHEN 325 MG TAB PO PRN (09:21)
[2020-04-08] MEDS ORDERED: ALPRAZolam 0.25 MG TABLET PO PRN (09:21)
[2020-04-08] MEDS: CLOPIDOGREL BISULFATE 75 MG TAB PO SCH (10:42)
[2020-04-08] MEDS: LEVOTHYROXINE SODIUM 112 MCG TABLET PO SCH (10:42)
[2020-04-08] MEDS: METOPROLOL SUCC 25MG EXT REL TAB PO SCH (10:42)
[2020-04-08] MEDS: PANTOprazole 40 MG TAB PO SCH (10:42)
[2020-04-08] MEDS: SIMVASTATIN 40 MG TAB PO SCH (10:43)
[2020-04-08] MEDS: FINASTERIDE 5 MG TAB PO SCH (10:44)
[2020-04-08] MEDS ORDERED: FUROSEMIDE 40 MG in SYRINGE 0 ML IV ONE (17:00)
[2020-04-08] MEDS ORDERED: ZOLPIDEM TARTRATE 10 MG TAB PO SCH (21:00)
--- NOTE | 2020-04-09 05:09 | Electrocardiogram Report ---
Test Reason : Blood Pressure : / mmHG Vent. Rate : 091 BPM Atrial Rate : 091 BPM P-R Int : 152 ms QRS Dur : 124 ms QT Int : 412 ms P-R-T Axes : 076 039 144 degrees QTc Int : 506 ms Normal sinus rhythm Non-specific intra-ventricular conduction delay Nonspecific ST and T wave abnormality Prolonged QT Abnormal ECG When compared with ECG of 25-MAR-2019 06:17, QT has lengthened Confirmed by Rubén Mas ([id number]) on 04/09/2020 5:08:51 AM Referred By: REFERRED SELF Confirmed By:Rubén Mas
[2020-04-09] MEDS: LEVOTHYROXINE SODIUM 112 MCG TABLET PO SCH (06:19)
[2020-04-09 06:27] LABS: Hematocrit (blood only) 38.7 % (42-52); Hemoglobin 12.4 g/dL (14.0-18.0); Mean Corpuscular Hemoglobin 30.2 pg (25-34); Mean Corpuscular Volume 94.2 fL (80-100); Mean Platelet Volume 10.4 fL (7.4-10.4); Platelet Count 191 K/uL (130-400); RDW Coefficient of Variation 17.2 % (11.5-14.5); RDW Standard Deviation 58.4 fL (36.4-46.3); Red Blood Count 4.11 M/uL (4.7-6.1); White Blood Count 10.09 K/uL (4.8-10.8)
[2020-04-09 06:57] LABS: BUN Creatinine Ratio 15.5 (10-20); Calcium 8.7 mg/dl (8.5-10.1); Creatinine Clr Calc Pharmacy 28.1 ml/min; Est GFR (African American) 37.1; Potassium 3.9 mmol/L (3.5-5.1)
[2020-04-09] MEDS: CLOPIDOGREL BISULFATE 75 MG TAB PO SCH (08:21)
[2020-04-09] MEDS: METOPROLOL SUCC 25MG EXT REL TAB PO SCH (08:21)
[2020-04-09] MEDS: FINASTERIDE 5 MG TAB PO SCH (08:21)
[2020-04-09] MEDS: PANTOprazole 40 MG TAB PO SCH (08:21)
[2020-04-09] MEDS: SIMVASTATIN 40 MG TAB PO SCH (08:22)
--- NOTE | 2020-04-09 10:31 | CT Scan Report ---
CT SCAN OF THE CHEST WITHOUT IV CONTRAST CLINICAL HISTORY: Hypoxia. Dyspnea. COMPARISON STUDY: Chest x-ray dated 04/08/2020. TECHNIQUE: CT scan of the thorax was performed from the thoracic inlet to the upper abdomen. Images are reviewed in the axial, sagittal, and coronal planes. IV contrast was not administered for this ex amination as per the referring clinician. A dose lowering technique was utilized adhering to the robin Mcallister. CT DOSE: 478.43 mGycm FINDINGS: Thyroid: Atrophic versus surgically absent. Thoracic aorta: There is atherosclerotic calcification of the thoracic aorta, which is normal in jose jeff and demonstrates standard 3-vessel arch anatomy. Heart: The patient is status post midline sternotomy. A cardiac AICD is present in the left chest wal l. The heart is enlarged and without pericardial effusion. The coronary arteries are densely calcifie d. The pulmonary arteries are dilated suggesting pulmonary artery hypertension. Lungs and pleural spaces: Emphysematous change is noted. Intralobular septal thickening suggests a co mponent of congestive failure. There are right larger than left pleural effusions with bibasilar atel ectasis. The trachea and central airways are clear. Patchy tree-in-bud nodularity seen throughout the upper lobes, right greater than left. Mediastinum: There are numerous mildly enlarged mediastinal lymph nodes. A precarinal node measures 1 3 mm in short axis. Danielle: Not well assessed without IV contrast. Axillae: There is no axillary lymphadenopathy. Upper abdomen: A 5.6 cm cyst arises from the upper pole of the right kidney. A subcentimeter cyst is noted in the left upper pole. There is trace perihepatic ascites. Skeletal structures: The skeletal structures are osteopenic. There is a mild superior endplate compre ssion deformity of L1. Degenerative change is seen throughout the thoracic spine. No lytic or blastic bony lesions are seen. IMPRESSION: 1. Cardiomegaly and AICD with evidence of congestive failure. 2. Emphysema. 3. Right larger than left pleural effusions with associated atelectasis. 4. Foci of tree-in-bud nodularity are seen throughout the upper lobes, right greater than left. Corre late clinically for evidence an infectious or inflammatory pneumonitis. This may be chronic. 5. Mildly enlarged mediastinal lymph nodes are nonspecific and may be reactive. 6. Trace perihepatic ascites. 7. Additional findings as above. ACT 112: Negative or not required by law. Electronically signed by: Nabor Esparza M.D. 04/09/2020 10:30 AM
--- NOTE | 2020-04-09 20:14 | Discharge Summary ---
Date of Service April 09, 2020 Admission HPI Per Admitting Provider Attending: Dr. Marx This is an 89-year-old male. He has a past medical history including CAD, pacemaker placement, congestive heart failure, hypothyroidism, hyperlipidemia, neuropathy, BPH hypertension. The patient was in his usual state of health and feeling well yesterday. He went to bed last night without any complication. He states that he fell out of bed overnight. He is unaware of how he fell or why he fell. He did not have any pain and does not think that he hit his head. He awoke his due to progressive shortness of breath which started 2 or 3 days ago. He was hesitant to get it checked as his is a brittle diabetic and he manages her diabetes. He lives alone with her and they have been for greater than 60 years. He denies any fever, chills, sweats, rigors. He has no nausea or vomiting. He had no chest pain or tightness. He denies any dyspnea with exertion. He has no recent diarrhea. Generally he states that he has been stable. He is a prior smoker and states that he quit smoking 8 years ago. He does not use ethanol. He states he is compliant with all of his medications. Pacemaker placement was 02/17/2020. The patient has no other acute complaints. Principal Diagnosis hypoxia -- acute on chronic systolic CHF (HFrEF) and chronic lung disease Discharge Exam gen aaox3 pleasant nad heent nc at mmm breathing unlabored no accessory muscles good effort skin no rashes no pallor or icterus Discharge Data Allergies Allergy/AdvReac Type Severity Reaction Status Date / Time atorvastatin AdvReac Intermediate MYALGIA Verified 04/08/20 05:53 Consultations 04/08/20 06:11 ED Decision to Admit Stat 04/08/20 09:21 Consult Case Management - Discharge Planning Routine Ordered Studies 04/09/20 08:49 CT chest wo con Routine Hospital Course (1) CHF exacerbation: acute on chronic systolic (HFrEF) -- due to sodium mediated fluid retention ([employer]ug[employer]) -diuresed to dry point (creatinine bumped) and pt almost demanding to go home -- safe/stable for home - [facility] CHF clinic aware of situation -stable for home on home meds -would be ideal for cardiomyopathy to get him on entresto but BP does not look like it would tolerate (2) Hypoxia: w creatinine rising - seemed disproportionate to CHF status - CT chest checked - does show some chronic lung disease -with this -- probably more brittle for hypoxia - so O2 set up for home. PCP to eval for ?inhalers etc --stable for home w O2 (3) CKD (chronic kidney disease), stage III: overall stable - bump in creatinine related to diuresis - but still basically in same range. BMP sunday (4) Chronic insomnia: (5) CAD (coronary artery disease): (6) Ischemic cardiomyopathy: (7) Idiopathic polyneuropathy: (8) Hypothyroidism: (9) Hyperlipidemia: (10) Chronic anemia: (11) Hypotension: (12) DVT prophylaxis: Total Time Total Time Spent Total Time Spent (In Minutes): <30 Discharge Plan Discharge Items Patient Disposition: Home - Home Health Services Reason For Visit: CHF EXACERBATION Discharge Diagnosis: acute chf exacerbation - see below Activity: Resume your previous activity Activity Comment: with oxygen Non-emergency contact: Primary Care Provider and Jalousie Installer Call non-emergency contact if: you have any medication questions and your symptoms worsen Follow-up/Referrals: Ermias Coppola MD [Primary Care Provider] - 04/16/20 11:30 am Marck García MD [Physician] - 04/15/20 3:45 pm (Your appointment will be with AIDA Ramon for Dr. García) Diet: Low Sodium (2gm) Addtl Attending Provider Instructions: chf exacerbation -what this means is that your heart is not able to push as much fluid forward as a normal heart. because of this, when your body retains more fluid, it will overflow your heart. when the heart overflows, this backs up into your lungs -- that is the main part of what made you feel worse and caused oxygen levels to drop -with the way our kidneys work, when they see a little salt, they'll hold onto a little water. when they see a lot of salt, then they hold on to a lot of water. in your case, you do very well staying low sodium for breakfast and lunch, but dinners get you into trouble. ([facility] has a TON of sodium, as does [facility]. if you follow through with your reservations at the [facility] tonight and have something salty like soup, you'll be seeing me again tomorrow when you get readmitted). -for the most part, if you stay less than about 2000mg of sodium on the day, it will minimize the fluid you retain - and therefore make it less likely that you get fluid backed up into your lungs making it hard to breathe. the trick is actually counting it up - so for you, when you're getting dinner - actually add up how much sodium it will be (most menus will have it, if not you can look it up pretty easily anymore) -- if you add up to more than 2000mg of sodium in a day (or if you have more than 500mg of sodium in a meal) the odds are much higher that we'll meet again as you flood with fluid and end up back in the hospital -the reason you got "mixed messages" from dr garcía and dr coppola on sodium is that your blood pressures also run fairly low -- and sometimes as we age we need extra sodium to keep blood pressures up. however, as weak as your heart is, it's going to be better to have them gently tweak down on your blood pressure medicines to help protect against low pressures, rather than have you add sodium. likewise, while we talked yesterday that a medicine like entresto would be really good to take pressure off your heart, it also unfortunately looks like right now we wouldn't be able to use it because it would make your blood pressures too low -we'll want you to have labwork done on sunday at Dr Coppola's office ([facility]) to follow up on kidney/electrolyte numbers - things always shift around some around the time of a chf exacerbation, so we'll want to follow things back to normal low oxygen -as we discussed, your labs show me that you're about as dry as we can get you, but you still were a bit low on oxygen - that's why i had them get the CT of your chest - and it does show a degree of chronic lung disease like emphysema that suggests that your lungs are probably a little worse on a good day than you realize. because of this, when things are anything but optimum with your heart or lungs, it looks like you'll probably need a little extra oxygen to help you out. in this respect, right now it looks like you need oxygen at a setting of 2L when you're walking, but you do ok at rest -it is helpful to get a pulse oximeter so you can track your oxygen numbers - anything above 90% is OK, if you're below 90% definitely have the oxygen on. if you're below 90 at rest or if you are below 90 and the oxygen isn't bringing you up - then we'd want you to get evaluated right away -when dr coppola sees you again he'll look you over for if you might benefit from some inhalers for the emphysema, etc - as this might help you breathe better too to do: -eat less than 2000mg of sodium in a day -have labwork (BMP) drawn at dr coppola's office on sunday -follow up with dr coppola next week -follow up with dr garcía in about 2-3 weeks Stand-Alone Forms: [facility], Smoking Cessation Medications and DC Order Prescriptions: Continued clopidogrel 75 mg tablet 75 mg PO DAILY Qty: 90 RF: 3 simvastatin 40 mg tablet 40 mg PO QAM Qty: 90 RF: 3 esomeprazole magnesium 40 mg capsule,delayed release(DR/EC) 40 mg PO QAM Qty: 90 RF: 3 levothyroxine 112 mcg tablet 112 mcg PO DAILY Qty: 90 RF: 1 zolpidem 12.5 mg tablet,ext release multiphase 12.5 mg PO QPM Qty: 30 RF: 0 alprazolam 0.25 mg tablet 0.25 mg PO DAILY PRN (Reason: anxiety) Qty: 45 RF: 0 nitroglycerin 0.4 mg tablet, sublingual 0.4 mg SL Q5M PRN (Reason: chest pain) Qty: 25 RF: 2 metoprolol succinate 25 mg tablet extended release 24 hr 12.5 mg PO QAM Qty: 90 RF: 3 furosemide [Lasix] 40 mg tablet 20 mg PO DAILY RF: 0 finasteride 5 mg tablet 5 mg PO DAILY RF: 0 gabapentin 100 mg capsule 200 mg PO QPM PRN (Reason: Pain) Qty: 60 RF: 5 Discharge Orders: Discharge Order (Routine); Ordered 04/09/20 Ordered By: Jose Castro Admission Data Admit Date/Time: 04/08/20 08:09 Attending Provider: Jose Castro Admit Provider: Jose Castro Primary Care Provider: Ermias Coppola Other Providers: Lawson Rendon Other Interventions: Discharge Summary Assessment (RN) Last Done: 04/09/20 15:08 Coding Level of Care Code D/C Day Management <30 mins Diagnoses CHF exacerbation I50.9 Hypoxia R09.02 CKD (chronic kidney disease), stage III N18.3 Chronic insomnia F51.04 CAD (coronary artery disease) I25.10 Ischemic cardiomyopathy I25.5 Idiopathic polyneuropathy G60.9 Hypothyroidism E03.9 Hypothyroidism type: acquired Hyperlipidemia E78.5 Chronic anemia D64.9 Hypotension I95.9 DVT prophylaxis Z29.9
--- NOTE | 2020-04-09 21:55 | Electrocardiogram Report ---
Test Reason : Blood Pressure : / mmHG Vent. Rate : 088 BPM Atrial Rate : 088 BPM P-R Int : 128 ms QRS Dur : 126 ms QT Int : 412 ms P-R-T Axes : 070 064 228 degrees QTc Int : 498 ms Normal sinus rhythm Non-specific intra-ventricular conduction block Abnormal ECG When compared with ECG of 08-APR-2020 05:03, Inverted T waves have replaced nonspecific T wave abnormality in Lateral leads Confirmed by Rubén Mas ([id number]) on 04/09/2020 9:55:07 PM Referred By: REFERRED SELF Confirmed By:Rubén Mas
== END 2020-04-09 15:50 | disposition home health service (06) | DRG 291 ==
LOC: ED 04:49 → 2S 08:09